=== PATIENT | female | born 1990 | race African-American/Black ===

== ENCOUNTER 2016-02-26 20:17 | Emergency (ER) | payer SELFPAY ==
[~2016-02-26] VITALS: Ht 157.5 cm; Wt 140.0 kg
[~2016-02-26 20:17] MED LIST: ALBU6.7H INH; AMLO5 PO; ASPI-110 PO; FURO1TAB60 PO; FURO40TA PO; NAPR500T PO; ZITH250T PO
[2016-02-26 20:18] VITALS: BP 141/68; PULSE 78; RESP 18; TEMP 98.3; O2SAT 94
[2016-02-26 22:57] VITALS: PULSE 82; RESP 18; O2SAT 97
[2016-02-27 01:56] VITALS: O2SAT 98
[2016-02-27] MEDS ORDERED: SODIUM CHLORIDE 0.9% FLUSH 5 ML FLUSH IVF PRN (02:00)
[2016-02-27 02:09] LABS: AUTOMATED NEUTROPHIL # 4.9 TH/MM3 (1.8-7.7); BASOPHIL % 0.3 % (0.0-2.0); EOSINOPHIL # 0.6 TH/MM3 (0-0.4); EOSINOPHIL % 6.4 % (0.0-4.0); HEMATOCRIT 32.6 % (35.0-46.0); LYMPH % 30.9 % (9.0-44.0); LYMPHOCYTE # 2.8 TH/MM3 (1.0-4.8); MEAN CELL VOLUME 67.4 FL (80.0-100.0); MEAN CORPUSCULAR HEMOGLOBIN 20.4 PG (27.0-34.0); MEAN CORPUSCULAR HGB CONC 30.3 % (32.0-36.0); MONO % 9.2 % (0.0-8.0); NEUT % 53.2 % (16.0-70.0); PLATELET COUNT 330 TH/MM3 (150-450); RED BLOOD COUNT 4.84 MIL/MM3 (4.00-5.30); RED CELL DISTRIBUTION WIDTH 19.6 % (11.6-17.2); WHITE BLOOD COUNT 9.2 TH/MM3 (4.0-11.0)
[2016-02-27 02:12] LABS: HEMO FLAGS AUTO DIFF
[2016-02-27 02:15] LABS: BACTERIA, URINE RARE /hpf; BLOOD, URINE NEG (NEG); COMMENT (UR) CULT NOT INDICATED; CULTURE IF INDICATED CULT NOT INDICATED; GLUCOSE,URINE NEG (NEG); KETONE, URINE NEG (NEG); MUCUS URINE FEW /lpf (OCC); NITRITE,URINE NEG (NEG); SQUAMOUS EPITHELIAL CELL URINE 8 /hpf (0-5); URINE COLOR YELLOW (YELLW/STRAW)
--- NOTE | 2016-02-27 02:20 | RADRPT ---
EXAM DATE/TIME: 02/27/2016 02:14 [facility] COMPARISON: CHEST SINGLE AP, January 24, 2016, 10:16. INDICATIONS : Shortness of breath. MEDICAL HISTORY : None. SURGICAL HISTORY : None. ENCOUNTER: Initial ACUITY: 1 day PAIN SCORE: 0/10 LOCATION: Bilateral chest FINDINGS: Examination is limited due to the breathing motion artifact in conjunction with the patient's body ndiaye bitus and portable nature of the study. A single view of the chest demonstrates the lungs to be symmetrically aerated without evidence of mas s, infiltrate or effusion. The cardiomediastinal contours are unremarkable. Osseous structures are intact. CONCLUSION: No acute disease. Somewhat limited study. Rudy Jefferson Jr., MD on February 27, 2016 at 2:18 Board Certified Radiologist. This report was verified electronically.
[2016-02-27 02:26] LABS: ANION GAP 8 MEQ/L (5-15); BICARBONATE 29.7 MEQ/L (21.0-32.0); BLOOD UREA NITROGEN 12 MG/DL (7-18); CHLORIDE 105 MEQ/L (98-107); GLOMERULAR FILTRATION RATE 112 ML/MIN (>89); MAGNESIUM 1.9 MG/DL (1.5-2.5); POTASSIUM 4.2 MEQ/L (3.5-5.1); SODIUM (NA) 143 MEQ/L (136-145)
[2016-02-27 02:29] LABS: CREATINE KINASE 136 U/L (26-192)
[2016-02-27 02:37] LABS: PLATELET ESTIMATE SMEAR NORMAL (NORMAL); PLATELET MORPHOLOGY NORMAL (NORMAL); SCAN/DIFF AUTO DIFF CONFIRMED
[2016-02-27 02:41] LABS: CKMB 1.6 NG/ML (0.5-3.6)
[2016-02-27] MEDS ORDERED: methylPREDNISolone SOD SUCC 125 MG/2 ML VIAL IVP ONE (03:00)
[2016-02-27] MEDS ORDERED: PRED20 PO (03:12)
[2016-02-27] MEDS ORDERED: VENTAER INH (03:12)
[2016-02-27] MEDS: RESP: ALBUTEROL 2.5 MG/IPRATROPIUM 0.5 MG NEB (SCH) INH ×2 (03:13→03:27)
--- NOTE | 2016-02-27 03:13 | PD ---
HPI Chief Complaint: Respiratory Distress Time Seen by Provider: 01:22 Travel History International Travel<30 days: No Contact w/Intl Traveler<30days: No Traveled to known affect area: No History of Present Illness HPI 25-year-old female came to the emergency room with history of shortness of breath for couple hours before coming into the emergency room. Patient has history of cardiomegaly and congestive heart failure. However she says that usually when it's a congestive heart failure she has associated chest pain but this time there was no chest pain. Oxygen saturation was 94% on room air in triage. Patient has history of sleep apnea. She is not a smoker. No history of fever or chills. PFSH Past Medical History Narrative Medical List of her past medical history as reviewed from the nursing note. Hx Anticoagulant Therapy: No Autoimmune Disease: No Bipolar Disorder: Yes Anxiety: No Depression: Yes Cancer: No Cardiovascular Problems: Yes (CHF) Chemotherapy: No Congestive Heart Failure: Yes Diabetes: No Diminished Hearing: No Endocrine: No Gastrointestinal Disorders: No Genitourinary: No Immune Disorder: No Implanted Vascular Access Dvce: No Insomnia: Yes Musculoskeletal: Yes Neurologic: Yes (numbness/tingling in hands & feet) Psychiatric: No Reproductive: No Respiratory: No Immunizations Current: Yes Radiation Therapy: No Tetanus Vaccination: Unknown Influenza Vaccination: No ?: Unknown LMP: 02/02/16 Menopausal: No : 1 Para: 1 Miscarriage: 0 : 0 Past Surgical History AICD: No Arteriovenous Shunt: No Section: Yes (february 2014) Hysterectomy: No Insulin Pump: No Joint Replacement: No Pacemaker: No Social History Alcohol Use: No Tobacco Use: No Substance Use: No Allergies-Medications (Allergen,Severity, Reaction): Coded Allergies: No Known Allergies (Verified , 02/27/16) Comments No known drug allergies. Reported Meds & Prescriptions Reported Meds & Active Scripts Active Ventolin Hfa 18 GM Inh (Albuterol Sulfate) 90 Mcg/Act Aer 2 Puff INH Q6H PRN Prednisone 20 Mg Tab 20 Mg PO BID 5 Days Norvasc (Amlodipine Besylate) 5 Mg Tab 5 Mg PO DAILY Aspirin 81 (Aspirin) 81 Mg Tabdr 81 Mg PO DAILY Reported Lasix (Furosemide) 40 Mg Tab 40 Mg PO DAILY Naproxen 500 Mg Tab 500 Mg PO BID Narrative Medication List of her home medications reviewed from the nursing note. Review of Systems Except as stated in HPI: all other systems reviewed are Neg Physical Exam Narrative GENERAL: Awake, alert, morbidly obese, moderate distress SKIN: Warm and dry. HEAD: Atraumatic. Normocephalic. EYES: Pupils equal and round. No scleral icterus. No injection or drainage. ENT: No nasal bleeding or discharge. Mucous membranes pink and moist. NECK: Trachea midline. No JVD. CARDIOVASCULAR: Regular rate and rhythm. No murmur appreciated. RESPIRATORY: Decreased air entry bilaterally, end expiratory wheeze GASTROINTESTINAL: Abdomen soft, non-tender, nondistended. Hepatic and splenic margins not palpable. MUSCULOSKELETAL: No obvious deformities. No clubbing. No cyanosis. No edema. NEUROLOGICAL: Awake and alert. No obvious cranial nerve deficits. Motor grossly within normal limits. Normal speech. PSYCHIATRIC: Appropriate mood and affect; insight and judgment normal. Data Data Last Documented VS Vital Signs Date Time Temp Pulse Resp B/P Pulse Ox O2 Delivery O2 Flow Rate FiO2 02/27/16 01:56 98 Room Air 02/26/16 22:57 82 18 02/26/16 20:18 98.3 141/68 Orders Complete Blood Count With Diff (02/27/16 01:48) Basic Metabolic Panel (Bmp) (02/27/16 01:48) B-Type Natriuretic Peptide (02/27/16 01:48) Magnesium (Mg) (02/27/16 01:48) Ckmb (Isoenzyme) Profile (02/27/16 01:48) Troponin I (02/27/16 01:48) Urinalysis - C+S If Indicated (02/27/16 01:48) Iv Access Insert/Monitor (02/27/16 01:48) Electrocardiogram (02/27/16 01:48) Ecg Monitoring (02/27/16 01:48) Oximetry (02/27/16 01:48) Oxygen Administration (02/27/16 01:48) Chest, Single Ap (02/27/16 01:48) Sodium Chloride 0.9% Flush (Ns Flush) (02/27/16 02:00) Ed Urine Pregnancytest Poc (02/27/16 01:48) CKMB (02/27/16 01:45) CKMB% (02/27/16 01:45) Methylprednisolone So Succ Inj (Solumedr (02/27/16 03:00) Albuterol-Ipratropium Neb (Duoneb Neb) (02/27/16 03:00) Albuterol Hfa Inh (Proair Hfa Inh) (02/27/16 03:15) Labs Laboratory Tests Test 02/27/16 01:45 White Blood Count 9.2 TH/MM3 Red Blood Count 4.84 MIL/MM3 Hemoglobin 9.9 GM/DL Hematocrit 32.6 % Mean Corpuscular Volume 67.4 FL Mean Corpuscular Hemoglobin 20.4 PG Mean Corpuscular Hemoglobin 30.3 % Concent Red Cell Distribution Width 19.6 % Platelet Count 330 TH/MM3 Mean Platelet Volume 7.4 FL Neutrophils (%) (Auto) 53.2 % Lymphocytes (%) (Auto) 30.9 % Monocytes (%) (Auto) 9.2 % Eosinophils (%) (Auto) 6.4 % Basophils (%) (Auto) 0.3 % Neutrophils # (Auto) 4.9 TH/MM3 Lymphocytes # (Auto) 2.8 TH/MM3 Monocytes # (Auto) 0.8 TH/MM3 Eosinophils # (Auto) 0.6 TH/MM3 Basophils # (Auto) 0.0 TH/MM3 CBC Comment AUTO DIFF Differential Comment AUTO DIFF CONFIRMED Platelet Estimate NORMAL Platelet Morphology Comment NORMAL Basophilic Stippling FAINT Urine Color YELLOW Urine Turbidity HAZY Urine pH 6.0 Urine Specific Bevier 1.029 Urine Protein 30 mg/dL Urine Glucose (UA) NEG mg/dL Urine Ketones NEG mg/dL Urine Occult Blood NEG Urine Nitrite NEG Urine Bilirubin NEG Urine Urobilinogen 2.0 MG/DL Urine Leukocyte Esterase NEG Urine WBC 4 /hpf Urine Squamous Epithelial 8 /hpf Cells Urine Bacteria RARE /hpf Urine Mucus FEW /lpf Microscopic Urinalysis Comment CULT NOT INDICATED Sodium Level 143 MEQ/L Potassium Level 4.2 MEQ/L Chloride Level 105 MEQ/L Carbon Dioxide Level 29.7 MEQ/L Anion Gap 8 MEQ/L Blood Urea Nitrogen 12 MG/DL Creatinine 0.75 MG/DL Estimat Glomerular Filtration 112 ML/MIN Rate Random Glucose 95 MG/DL Calcium Level 8.6 MG/DL Magnesium Level 1.9 MG/DL Total Creatine Kinase 136 U/L Creatine Kinase MB 1.6 NG/ML Troponin I LESS THAN 0.02 NG/ML B-Type Natriuretic Peptide 21 PG/ML MDM Medical Decision Making Medical Screen Exam Complete: Yes Emergency Medical Condition: Yes Medical Record Reviewed: Yes Interpretation(s) Twelve-lead EKG was reviewed by me. Normal sinus rhythm, normal axis, nonspecific ST-T wave changes. Heart rate of 70 bpm. Differential Diagnosis Acute asthma exacerbation, CHF exacerbation Narrative Course 3:10 AM blood test and chest x-ray is not suggestive of congestive heart failure at this time. Ordered nebulizer and IV Solu-Medrol for her. Patient has requested for an inhaler since she ran out of her inhaler. She will be discharged home on that and prednisone. Procedures EKG Prior to Arrival: Yes Diagnosis Primary Impression: Asthma exacerbation Referrals: Primary Care Physician 2 days Departure Forms: Tests/Procedures, Work Release Enter return to work date: Feb 28, 2016 Additional Instructions: Use your inhaler every 4-6 hours 2 puffs. With your primary care in couple days. Take the indication as per the prescription direction. Return to the ER if the condition worsens or any other new concerns. Med/Other Pt SpecificInfo: Prescription(s) given Scripts Albuterol 18 GM Inh (Ventolin Hfa 18 GM Inh)90 Mcg/Act Aer2 Puff INH Q6H PRN ( SHORTNESS OF BREATH) #1 INHALER Ref 0 Prov:Cleo Oroukre MD 02/27/16 Prednisone 20 Mg Tab20 Mg PO BID 5 Days Ref 0 Prov:Cleo Orourke MD 02/27/16 Disposition: 01 DISCHARGE HOME Condition: Stable Cleo Orourke MD Feb 27, 2016 03:13
[2016-02-27] MEDS ORDERED: ALBUTEROL SULFATE 90 MCG/ACT HFA 8 GM INHALER INH ONE (03:15)
--- NOTE | 2016-02-27 09:48 | EKG ---
Date Performed: 02/27/2016 Time Performed: 00:59:57 PTAGE: 25 years EKG: Sinus rhythm NORMAL ECG NO PREVIOUS TRACING DOCTOR: Shekhar Marie Interpretating Date/Time 02/27/2016 09:45:48
== END 2016-02-27 03:35 | disposition home or self-care (01) ==
LOC: NEPE 20:17
DX: J45.901 Unspecified asthma with (acute) exacerbation (principal); I50.9 Heart failure, unspecified; I51.7 Cardiomegaly
CPT/HCPCS: 71010; 80048; 81001; 82550; 82552; 83735; 83880; 84484; 84703; 85025; 93005; 94640; 94664; 96374; 99285; J2930

== ENCOUNTER 2016-08-31 19:49 | Emergency (ER) | payer OTHER ==
[~2016-08-31] VITALS: Ht 157.5 cm; Wt 145.0 kg
[~2016-08-31 19:49] MED LIST changes: -ALBU6.7H INH; -FURO40TA PO; +PRED20 PO; +VENTAER INH; -ZITH250T PO
[2016-08-31 19:50] VITALS: BP 146/95; PULSE 87; RESP 18; TEMP 98.5; O2SAT 95
[2016-08-31] MEDS ORDERED: ONDANSETRON HCL 4 MG/2 ML VIAL IV PUSH ONE (23:00)
[2016-08-31] MEDS ORDERED: KETOROLAC TROMETHAMINE 30 MG/ML (IVP) VIAL IV PUSH ONE (23:00)
--- NOTE | 2016-08-31 23:13 | RADRPT ---
EXAM DATE/TIME: 08/31/2016 22:59 [facility] COMPARISON: CHEST SINGLE AP, February 27, 2016, 2:14. INDICATIONS : Cough and short of breath. MEDICAL HISTORY : None. SURGICAL HISTORY : None. ENCOUNTER: Initial ACUITY: 2 weeks PAIN SCORE: 0/10 LOCATION: Bilateral chest FINDINGS: A single view of the chest demonstrates the lungs to be symmetrically aerated without evidence of mas s, infiltrate or effusion. The cardiomediastinal contours are unremarkable. Osseous structures are intact. CONCLUSION: No evidence of acute cardiopulmonary disease. Michael Gillis MD on August 31, 2016 at 23:12 Board Certified Radiologist. This report was verified electronically.
--- NOTE | 2016-08-31 23:25 | PD ---
HPI Chief Complaint: Respiratory Symptoms Time Seen by Provider: 22:20 Travel History International Travel<30 days: No Contact w/Intl Traveler<30days: No Traveled to known affect area: No History of Present Illness HPI 26yo F presents to the ED with c/o generalized bodyaches, nasal congestion for 2 weeks. Also with some throat discomfort. States her baby also has congestion. Denies any fever, chest pain, sob, vomiting, abdominal pain, focal weakness or numbness. Pt has a dry cough as well as nonbloody diarrhea. PFSH Past Medical History Medical History: Denies Significant Hx Hx Anticoagulant Therapy: No Autoimmune Disease: No Bipolar Disorder: Yes Anxiety: No Depression: Yes Cancer: No Cardiovascular Problems: Yes (CHF) Chemotherapy: No Congestive Heart Failure: Yes Diabetes: No Diminished Hearing: No Endocrine: No Gastrointestinal Disorders: No Genitourinary: No Immune Disorder: No Implanted Vascular Access Dvce: No Insomnia: Yes Musculoskeletal: Yes Neurologic: Yes (numbness/tingling in hands & feet) Psychiatric: No Reproductive: No Respiratory: Yes (copd) Immunizations Current: Yes Radiation Therapy: No Tetanus Vaccination: < 5 Years Influenza Vaccination: No ?: Not LMP: 08/18/2016 Menopausal: No : 1 Para: 1 Miscarriage: 0 : 0 Past Surgical History Surgical History: No Previous Surgery AICD: No Arteriovenous Shunt: No Section: Yes Hysterectomy: No Insulin Pump: No Joint Replacement: No Pacemaker: No Social History Alcohol Use: No Tobacco Use: No Substance Use: No Allergies-Medications (Allergen,Severity, Reaction): Coded Allergies: No Known Allergies (Verified , 08/31/16) Reported Meds & Prescriptions Reported Meds & Active Scripts Active Sudafed 12 Hour (Pseudoephedrine HCl) 120 Mg Tablet.er 1 Tab PO Q12HR PRN 5 Days Tylenol (Acetaminophen) 325 Mg Tab 650 Mg PO Q6H PRN Reported Lasix (Furosemide) 40 Mg Tab 40 Mg PO DAILY Review of Systems Except as stated in HPI: all other systems reviewed are Neg Physical Exam Narrative GENERAL: 26yo F in mild distress. SKIN: Focused skin assessment warm/dry. HEAD: Atraumatic. Normocephalic. EYES: Pupils equal and round. No scleral icterus. No injection or drainage. ENT: No nasal bleeding or discharge. Mucous membranes pink and moist. Throat: Clear. TM wnl bilaterally. NECK: Trachea midline. No JVD. No nuchal rigidity. CARDIOVASCULAR: Regular rate and rhythm. No murmur appreciated. RESPIRATORY: No accessory muscle use. Clear to auscultation. Breath sounds equal bilaterally. GASTROINTESTINAL: Abdomen soft, non-tender, nondistended. No rebound tenderness or guarding. MUSCULOSKELETAL: No obvious deformities. No clubbing. No cyanosis. No edema. NEUROLOGICAL: Awake and alert. No obvious cranial nerve deficits. Motor grossly within normal limits. Normal speech. PSYCHIATRIC: Appropriate mood and affect; insight and judgment normal. Data Data Last Documented VS Vital Signs Date Time Temp Pulse Resp B/P Pulse Ox O2 Delivery O2 Flow Rate FiO2 08/31/16 22:10 73 20 100 08/31/16 19:50 98.5 146/95 Room Air Orders Chest, Single Ap (08/31/16 ) Complete Blood Count With Diff (08/31/16 22:47) Basic Metabolic Panel (Bmp) (08/31/16 22:47) Ketorolac Inj (Toradol Inj) (08/31/16 23:00) Bhcg Screen Qualitative (08/31/16 22:47) Ondansetron Inj (Zofran Inj) (08/31/16 23:00) Influenzae A/B Antigen (08/31/16 22:47) Group A Rapid Strep Screen (08/31/16 22:47) Strep Culture (Group A) (08/31/16 23:05) Labs Laboratory Tests Test 08/31/16 23:25 White Blood Count 5.8 TH/MM3 Red Blood Count 4.89 MIL/MM3 Hemoglobin 9.7 GM/DL Hematocrit 32.4 % Mean Corpuscular Volume 66.2 FL Mean Corpuscular Hemoglobin 19.9 PG Mean Corpuscular Hemoglobin 30.1 % Concent Red Cell Distribution Width 20.6 % Platelet Count 353 TH/MM3 Mean Platelet Volume 8.8 FL Neutrophils (%) (Auto) 41.1 % Lymphocytes (%) (Auto) 37.5 % Monocytes (%) (Auto) 11.6 % Eosinophils (%) (Auto) 9.2 % Basophils (%) (Auto) 0.6 % Neutrophils # (Auto) 2.4 TH/MM3 Lymphocytes # (Auto) 2.2 TH/MM3 Monocytes # (Auto) 0.7 TH/MM3 Eosinophils # (Auto) 0.5 TH/MM3 Basophils # (Auto) 0.0 TH/MM3 CBC Comment DIFF FINAL Differential Comment Sodium Level 141 MEQ/L Potassium Level 4.4 MEQ/L Chloride Level 103 MEQ/L Carbon Dioxide Level 33.3 MEQ/L Anion Gap 5 MEQ/L Blood Urea Nitrogen 7 MG/DL Creatinine 0.78 MG/DL Estimat Glomerular Filtration 106 ML/MIN Rate Random Glucose 95 MG/DL Calcium Level 8.3 MG/DL Beta HCG, Qualitative LESS THAN 1 MIU/ML MDM Medical Decision Making Medical Screen Exam Complete: Yes Emergency Medical Condition: Yes Interpretation(s) Laboratory Tests Test 08/31/16 23:25 White Blood Count 5.8 TH/MM3 (4.0-11.0) Red Blood Count 4.89 MIL/MM3 (4.00-5.30) Hemoglobin 9.7 GM/DL (11.6-15.3) Hematocrit 32.4 % (35.0-46.0) Mean Corpuscular Volume 66.2 FL (80.0-100.0) Mean Corpuscular Hemoglobin 19.9 PG (27.0-34.0) Mean Corpuscular Hemoglobin 30.1 % Concent (32.0-36.0) Red Cell Distribution Width 20.6 % (11.6-17.2) Platelet Count 353 TH/MM3 (150-450) Mean Platelet Volume 8.8 FL (7.0-11.0) Neutrophils (%) (Auto) 41.1 % (16.0-70.0) Lymphocytes (%) (Auto) 37.5 % (9.0-44.0) Monocytes (%) (Auto) 11.6 % (0.0-8.0) Eosinophils (%) (Auto) 9.2 % (0.0-4.0) Basophils (%) (Auto) 0.6 % (0.0-2.0) Neutrophils # (Auto) 2.4 TH/MM3 (1.8-7.7) Lymphocytes # (Auto) 2.2 TH/MM3 (1.0-4.8) Monocytes # (Auto) 0.7 TH/MM3 (0-0.9) Eosinophils # (Auto) 0.5 TH/MM3 (0-0.4) Basophils # (Auto) 0.0 TH/MM3 (0-0.2) CBC Comment DIFF FINAL Differential Comment Sodium Level 141 MEQ/L (136-145) Potassium Level 4.4 MEQ/L (3.5-5.1) Chloride Level 103 MEQ/L (98-107) Carbon Dioxide Level 33.3 MEQ/L (21.0-32.0) Anion Gap 5 MEQ/L (5-15) Blood Urea Nitrogen 7 MG/DL (7-18) Creatinine 0.78 MG/DL (0.50-1.00) Estimat Glomerular Filtration 106 ML/MIN Rate (>89) Random Glucose 95 MG/DL (74-106) Calcium Level 8.3 MG/DL (8.5-10.1) Beta HCG, Qualitative LESS THAN 1 MIU/ML (0-5) Differential Diagnosis URI vs. flu like symptoms vs. viral syndrome vs. dehydration Narrative Course 26yo F with flu like symptoms. Labs reviewed, no leukocytosis. H/H 9.7/32.4. This is low but at baseline. CO2 mildly elevated at 33.3. negative. UA showed negative leukocyte. Culture not indicated. CXR negative. Influenza and group A strep negative. Pt given toradol and zofran. Pt reevaluated at bedside and feels better. Return precautions given. Diagnosis Primary Impression: URI (upper respiratory infection) Qualified Code: J06.9 - Upper respiratory tract infection, unspecified type Patient Instructions: General Instructions Departure Forms: Tests/Procedures, Work Release Enter return to work date: Sep 03, 2016 Additional Instructions: Please follow up with your PMD in 3-7 days. Return to the ED if symptoms worsen. Med/Other Pt SpecificInfo: Prescription(s) given Scripts Pseudoephedrine HCl (Sudafed 12 Hour)120 Mg Tablet.er1 Tab PO Q12HR PRN (NASAL CONGESTION) 5 Days Prov:Marisa Fermin 09/01/16 Acetaminophen (Tylenol)325 Mg [id number] Mg PO Q6H PRN (PAIN SCALE 1 TO 4) #20 TAB Ref 0 Prov:Marisa Fermin 09/01/16 Disposition: 01 DISCHARGE HOME Condition: Stable Argelia Ferminluan ROSS Aug 31, 2016 23:25
[2016-08-31 23:55] LABS: AUTOMATED NEUTROPHIL # 2.4 TH/MM3 (1.8-7.7); BASOPHIL % 0.6 % (0.0-2.0); EOSINOPHIL # 0.5 TH/MM3 (0-0.4); EOSINOPHIL % 9.2 % (0.0-4.0); HEMATOCRIT 32.4 % (35.0-46.0); HEMO FLAGS DIFF FINAL; LYMPH % 37.5 % (9.0-44.0); LYMPHOCYTE # 2.2 TH/MM3 (1.0-4.8); MEAN CELL VOLUME 66.2 FL (80.0-100.0); MEAN CORPUSCULAR HEMOGLOBIN 19.9 PG (27.0-34.0); MEAN CORPUSCULAR HGB CONC 30.1 % (32.0-36.0); MONO % 11.6 % (0.0-8.0); NEUT % 41.1 % (16.0-70.0); PLATELET COUNT 353 TH/MM3 (150-450); RED BLOOD COUNT 4.89 MIL/MM3 (4.00-5.30); RED CELL DISTRIBUTION WIDTH 20.6 % (11.6-17.2); WHITE BLOOD COUNT 5.8 TH/MM3 (4.0-11.0)
[2016-09-01 00:06] LABS: BHCG SCREEN QUALITATIVE LESS THAN 1 MIU/ML (0-5)
[2016-09-01 00:07] LABS: BLOOD UREA NITROGEN 7 MG/DL (7-18)
[2016-09-01 00:08] LABS: ANION GAP 5 MEQ/L (5-15); BICARBONATE 33.3 MEQ/L (21.0-32.0); CHLORIDE 103 MEQ/L (98-107); GLOMERULAR FILTRATION RATE 106 ML/MIN (>89); POTASSIUM 4.4 MEQ/L (3.5-5.1); SODIUM (NA) 141 MEQ/L (136-145)
[2016-09-01] MEDS ORDERED: SUDA120T6 PO (01:01)
[2016-09-01] MEDS ORDERED: TYLE325T PO (01:01)
[2016-09-01 01:03] VITALS: RESP 20
== END 2016-09-01 01:23 | disposition home or self-care (01) ==
LOC: NEPD 19:49
DX: J06.9 Acute upper respiratory infection, unspecified (principal); R19.7 Diarrhea, unspecified; J44.9 Chronic obstructive pulmonary disease, unspecified; I50.9 Heart failure, unspecified; F31.9 Bipolar disorder, unspecified; Z79.899 Other long term (current) drug therapy
CPT/HCPCS: 71010; 80048; 84703; 85025; 87081; 87804; 87880; 96374; 96375; 99284; J1885; J2405

== ENCOUNTER 2016-11-22 21:32 | Observation (INO) | payer OTHER ==
[~2016-11-22] VITALS: Ht 157.5 cm; Wt 149.4 kg
[~2016-11-22 21:32] MED LIST changes: -AMLO5 PO; -ASPI-110 PO; -NAPR500T PO; -PRED20 PO; +SUDA120T6 PO; +TYLE325T PO; -VENTAER INH
[2016-11-22 21:56] VITALS: BP 191/101; PULSE 96; RESP 20; TEMP 99.1; O2SAT 92
[2016-11-22 21:58] VITALS: BP 162/105; PULSE 90; RESP 22; O2SAT 92
[2016-11-22] MEDS ORDERED: SODIUM CHLORIDE 0.9% FLUSH 10 ML FLUSH IVF PRN (22:00)
[2016-11-22] MEDS ORDERED: FUROSEMIDE 40 MG/4 ML VIAL IVP ONE (22:00)
--- NOTE | 2016-11-22 22:05 | PD ---
HPI Chief Complaint: Respiratory Symptoms Time Seen by Provider: 21:54 Travel History International Travel<30 days: No Contact w/Intl Traveler<30days: No Traveled to known affect area: No History of Present Illness HPI Patient is a 26-year-old female presenting to emergency for evaluation of shortness of breath. Patient states that she's felt short of breath for the last 2 days and had accompanying body aches. Today she felt as if she was going to pass out and couldn't breathe well. She states that she was diagnosed with asthma a few years ago and has been fine. She does not have an inhaler at home. She reports that she had a history of congestive heart failure as well and reports increased swelling in her feet. She denies chest pain, fever, chills, nausea, vomiting, abdominal pain. PFSH Past Medical History Hx Anticoagulant Therapy: No Asthma: Yes Autoimmune Disease: No Bipolar Disorder: Yes Anxiety: No Depression: Yes Cancer: No Chemotherapy: No Congestive Heart Failure: Yes Diabetes: No Diminished Hearing: No Endocrine: No Gastrointestinal Disorders: No Genitourinary: No Immune Disorder: No Implanted Vascular Access Dvce: No Insomnia: Yes Neurologic: Yes (numbness/tingling in hands & feet) Psychiatric: No Reproductive: No Immunizations Current: Yes Radiation Therapy: No ?: Unknown LMP: 10/21/16 Menopausal: No : 1 Para: 1 Miscarriage: 0 : 0 Past Surgical History AICD: No Arteriovenous Shunt: No Section: Yes Hysterectomy: No Insulin Pump: No Joint Replacement: No Pacemaker: No Social History Alcohol Use: No Tobacco Use: No Substance Use: No Allergies-Medications (Allergen,Severity, Reaction): Coded Allergies: No Known Allergies (Verified , 11/22/16) Reported Meds & Prescriptions Reported Meds & Active Scripts Active No Active Prescriptions or Reported Medications Review of Systems Except as stated in HPI: all other systems reviewed are Neg General / Constitutional: No: Fever, Chills HENT: No: Headaches Cardiovascular: Positive: Dyspnea on exertion, No: Chest Pain or Discomfort Respiratory: Positive: Shortness of Breath Gastrointestinal: No: Nausea, Vomiting, Abdominal Pain Musculoskeletal: Positive: Myalgias Physical Exam Narrative GENERAL: Obese, well-developed, alert female. Appears uncomfortable, in no acute distress. SKIN: Warm and dry. HEAD: Atraumatic. Normocephalic. EYES: Pupils equal and round. No scleral icterus. No injection or drainage. ENT: No nasal bleeding or discharge. Mucous membranes pink and moist. NECK: Trachea midline. No JVD. CARDIOVASCULAR: Regular rate and rhythm. RESPIRATORY: No accessory muscle use. Diminished throughout. GASTROINTESTINAL: Abdomen soft, non-tender, nondistended. Hepatic and splenic margins not palpable. MUSCULOSKELETAL: Extremities without clubbing, cyanosis. Trace pedal edema, no obvious deformities. NEUROLOGICAL: Awake and alert. No obvious cranial nerve deficits. Motor grossly within normal limits. Five out of 5 muscle strength in the arms and legs. Normal speech. PSYCHIATRIC: Appropriate mood and affect; insight and judgment normal. Data Data Last Documented VS Vital Signs Date Time Temp Pulse Resp B/P (MAP) Pulse Ox O2 Delivery O2 Flow Rate FiO2 11/23/16 01:52 90 24 168/78 (108) 94 Nasal Cannula 2.00 11/22/16 21:56 99.1 Orders Orders Complete Blood Count With Diff (11/22/16 22:00) Comprehensive Metabolic Panel (11/22/16 22:00) B-Type Natriuretic Peptide (11/22/16 22:00) Magnesium (Mg) (11/22/16 22:00) Arterial Blood Gas (Abg) (11/22/16 22:00) Influenzae A/B Antigen (11/22/16 22:00) Iv Access Insert/Monitor (11/22/16 22:00) Electrocardiogram (11/22/16 22:00) Ecg Monitoring (11/22/16 22:00) Oximetry (11/22/16 22:00) Oxygen Administration (11/22/16 22:00) Chest, Single Ap (11/22/16 22:00) Sodium Chloride 0.9% Flush (Ns Flush) (11/22/16 22:00) Furosemide Inj (Lasix Inj) (11/22/16 22:00) Albuterol-Ipratropium Neb (Duoneb Neb) (11/22/16 22:00) Azithromycin (Zithromax) (11/23/16 00:45) Amoxicil-Clavulanate (Augmentin) (11/23/16 00:45) Methylprednisolone So Succ Inj (Solumedr (11/23/16 00:45) Labs Laboratory Tests Test 11/22/16 22:24 11/22/16 22:30 11/23/16 00:55 Blood Gas Puncture Site RT RADIAL Blood Gas Patient Temperature 98.6 Blood Gas HCO3 27 mmol/L Blood Gas Base Excess 1.9 mmol/L Blood Gas Oxygen Saturation 92 % Arterial Blood pH 7.38 Arterial Blood Partial Pressure CO2 46 mmHg Arterial Blood Partial Pressure O2 74 mmHG Arterial Blood Oxygen Content 13.3 Vol % Arterial Blood Carboxyhemoglobin 1.7 % Arterial Blood Methemoglobin 0.4 % Blood Gas Hemoglobin 10.2 G/DL Oxygen Delivery Device NASAL CANNULA Blood Gas Liter Flow 2 L/M White Blood Count 10.7 TH/MM3 Red Blood Count 5.37 MIL/MM3 Hemoglobin 11.5 GM/DL Hematocrit 36.4 % Mean Corpuscular Volume 67.8 FL Mean Corpuscular Hemoglobin 21.4 PG Mean Corpuscular Hemoglobin Concent 31.6 % Red Cell Distribution Width 20.0 % Platelet Count 489 TH/MM3 Mean Platelet Volume 7.7 FL Neutrophils (%) (Auto) 64.7 % Lymphocytes (%) (Auto) 28.0 % Monocytes (%) (Auto) 4.7 % Eosinophils (%) (Auto) 1.9 % Basophils (%) (Auto) 0.7 % Neutrophils # (Auto) 6.9 TH/MM3 Lymphocytes # (Auto) 3.0 TH/MM3 Monocytes # (Auto) 0.5 TH/MM3 Eosinophils # (Auto) 0.2 TH/MM3 Basophils # (Auto) 0.1 TH/MM3 CBC Comment DIFF FINAL Differential Comment B-Type Natriuretic Peptide 257 PG/ML Blood Urea Nitrogen 9 MG/DL Creatinine 0.90 MG/DL Random Glucose 97 MG/DL Total Protein 8.3 GM/DL Albumin 4.6 GM/DL Calcium Level 8.3 MG/DL Magnesium Level 1.7 MG/DL Alkaline Phosphatase 66 U/L Aspartate Amino Transf (AST/SGOT) 24 U/L Alanine Aminotransferase (ALT/SGPT) 32 U/L Total Bilirubin 0.5 MG/DL Sodium Level 139 MEQ/L Potassium Level 4.0 MEQ/L Chloride Level 102 MEQ/L Carbon Dioxide Level 28.9 MEQ/L Anion Gap 8 MEQ/L Estimat Glomerular Filtration Rate 90 ML/MIN MDM Medical Decision Making Medical Screen Exam Complete: Yes Emergency Medical Condition: Yes Interpretation(s) Laboratory Tests Test 11/22/16 22:24 11/22/16 22:30 11/23/16 00:55 Blood Gas Puncture Site RT RADIAL Blood Gas Patient Temperature 98.6 Blood Gas HCO3 27 mmol/L Blood Gas Base Excess 1.9 mmol/L Blood Gas Oxygen Saturation 92 % Arterial Blood pH 7.38 Arterial Blood Partial Pressure CO2 46 mmHg Arterial Blood Partial Pressure O2 74 mmHG Arterial Blood Oxygen Content 13.3 Vol % Arterial Blood Carboxyhemoglobin 1.7 % Arterial Blood Methemoglobin 0.4 % Blood Gas Hemoglobin 10.2 G/DL Oxygen Delivery Device NASAL CANNULA Blood Gas Liter Flow 2 L/M White Blood Count 10.7 TH/MM3 Red Blood Count 5.37 MIL/MM3 Hemoglobin 11.5 GM/DL Hematocrit 36.4 % Mean Corpuscular Volume 67.8 FL Mean Corpuscular Hemoglobin 21.4 PG Mean Corpuscular Hemoglobin Concent 31.6 % Red Cell Distribution Width 20.0 % Platelet Count 489 TH/MM3 Mean Platelet Volume 7.7 FL Neutrophils (%) (Auto) 64.7 % Lymphocytes (%) (Auto) 28.0 % Monocytes (%) (Auto) 4.7 % Eosinophils (%) (Auto) 1.9 % Basophils (%) (Auto) 0.7 % Neutrophils # (Auto) 6.9 TH/MM3 Lymphocytes # (Auto) 3.0 TH/MM3 Monocytes # (Auto) 0.5 TH/MM3 Eosinophils # (Auto) 0.2 TH/MM3 Basophils # (Auto) 0.1 TH/MM3 CBC Comment DIFF FINAL Differential Comment B-Type Natriuretic Peptide 257 PG/ML Blood Urea Nitrogen 9 MG/DL Creatinine 0.90 MG/DL Random Glucose 97 MG/DL Total Protein 8.3 GM/DL Albumin 4.6 GM/DL Calcium Level 8.3 MG/DL Magnesium Level 1.7 MG/DL Alkaline Phosphatase 66 U/L Aspartate Amino Transf (AST/SGOT) 24 U/L Alanine Aminotransferase (ALT/SGPT) 32 U/L Total Bilirubin 0.5 MG/DL Sodium Level 139 MEQ/L Potassium Level 4.0 MEQ/L Chloride Level 102 MEQ/L Carbon Dioxide Level 28.9 MEQ/L Anion Gap 8 MEQ/L Estimat Glomerular Filtration Rate 90 ML/MIN Vital Signs Date Time Temp Pulse Resp B/P (MAP) Pulse Ox O2 Delivery O2 Flow Rate FiO2 11/22/16 21:58 90 22 162/105 (124) 92 Nasal Cannula 10/1/17 21:56 99.1 96 20 191/101 (131) 92 Room Air 11/22/16 21:55 89 Nasal Cannula 2.00 Differential Diagnosis CHF versus asthma exacerbation versus pneumonia versus less likely PE versus other Narrative Course Patient presented with 2 days of worsening shortness of breath and body aches. On arrival her oxygen saturation was in the upper 80s. Patient does not normally require oxygen. She reported a history of asthma as well as congestive heart failure. Labs and imaging ordered and pending. Nebulizer treatment as well as Lasix IV was ordered. CBC with no acute findings BNP 257 Chest x-ray read by the radiologist shows lobar consolidation of the left lower lung. Patient was given Augmentin and azithromycin as well as Solu-Medrol. Patient ambulated, her O2 sats were reassessed at 88% on room air. She became tachycardic with a rate in the 120s as well. For this reason patient will be admitted under observation to optimize her respiratory status. Discussed with Dr. Camacho accepted admission. Admit orders placed. Sepsis Criteria SIRS Criteria (2 or more): Heart rate over 90, RR > 20 or PaCO2 < 32 Sepsis Criteria (SIRS+source): Infect source susp/known Diagnosis Primary Impression: Pneumonia Qualified Codes: J18.1 - Lobar pneumonia, unspecified organism Admitting Information Admitting Physician Requests: Observation Scripts No Active Prescriptions or Reported Meds Condition: Maria Esther Lindsay MEDICAL INSURANCE COLLECTOR Nov 22, 2016 22:05
[2016-11-22 22:10] VITALS: O2SAT 98
[2016-11-22] MEDS: RESP: ALBUTEROL 2.5 MG/IPRATROPIUM 0.5 MG NEB (SCH) INH ×2 (22:17→22:18)
[2016-11-22 22:37] LABS: AUTOMATED NEUTROPHIL # 6.9 TH/MM3 (1.8-7.7); BASOPHIL # 0.1 TH/MM3 (0-0.2); BASOPHIL % 0.7 % (0.0-2.0); EOSINOPHIL # 0.2 TH/MM3 (0-0.4); EOSINOPHIL % 1.9 % (0.0-4.0); HEMATOCRIT 36.4 % (35.0-46.0); HEMO FLAGS DIFF FINAL; MEAN CELL VOLUME 67.8 FL (80.0-100.0); MEAN CORPUSCULAR HEMOGLOBIN 21.4 PG (27.0-34.0); MEAN CORPUSCULAR HGB CONC 31.6 % (32.0-36.0); MONO % 4.7 % (0.0-8.0); NEUT % 64.7 % (16.0-70.0); PLATELET COUNT 489 TH/MM3 (150-450); RED BLOOD COUNT 5.37 MIL/MM3 (4.00-5.30); WHITE BLOOD COUNT 10.7 TH/MM3 (4.0-11.0)
[2016-11-22 22:37] LABS: BLOOD GAS BASE EXCESS 1.9 mmol/L (-2-2); BLOOD GAS CARBOXYHEMOGLOBIN 1.7 % (0-4); BLOOD GAS HCO3 27 mmol/L (22-26); BLOOD GAS METHEMOGLOBIN 0.4 % (0-2); BLOOD GAS O2 HGB SATURATION 92 % (90-100); BLOOD GAS OXYGEN CONTENT 13.3 Vol % (12.0-20.0); BLOOD GAS PCO2 46 mmHg (38-42); BLOOD GAS PO2 74 mmHG (61-120); BLOOD GAS TOTAL HGB 10.2 G/DL (12.0-16.0); TEMP CORR TO 98.6
[2016-11-22 22:38] VITALS: RESP 24; O2SAT 99
[2016-11-22 22:38] LABS: CRITICAL VALUE NO; DRAW SITE RT RADIAL; LITER FLOW 2 L/M; NUMBER OF ARTERIAL PUNCTURES 1; OXYGEN DEVICE NASAL CANNULA; STAT YES; ULNAR PULSE PRESENT
--- NOTE | 2016-11-22 22:39 | RADRPT ---
EXAM DATE/TIME: 11/22/2016 22:10 [facility] COMPARISON: CHEST SINGLE AP, August 31, 2016, 22:59. INDICATIONS : Short of breath. MEDICAL HISTORY : None. SURGICAL HISTORY : None. ENCOUNTER: Initial ACUITY: 1 day PAIN SCORE: 7/10 LOCATION: Bilateral chest FINDINGS: Frontal portable view of the chest demonstrates the right lung to be clear. Multiple air bronchogram s are seen in the left mid and lower lung without loss of delineation left hemidiaphragm. The heart is upper limits normal size for AP technique. CONCLUSION: Lobar consolidation left lower lung. Rudy Bronson MD on November 22, 2016 at 22:37 Board Certified Radiologist. This report was verified electronically.
[2016-11-23] VITALS (21 sets, daily range): BP systolic 143–195; BP diastolic 78–92; PULSE 74–100; RESP 16–24; TEMP 97.9–98.7; O2SAT 92–99
[2016-11-23] MEDS ORDERED: AMOXICILLIN/CLAVULANATE K 875 MG TAB PO ONE (00:45)
[2016-11-23] MEDS ORDERED: methylPREDNISolone SOD SUCC 125 MG/2 ML VIAL IV PUSH ONE (00:45)
[2016-11-23] MEDS ORDERED: AZITHROMYCIN 250 MG TAB PO ONE (00:45)
[2016-11-23 01:30] LABS: ALKALINE PHOSPHATASE 66 U/L (45-117); TOTAL BILIRUBIN ADULT 0.5 MG/DL (0.2-1.0)
[2016-11-23 01:35] LABS: ALT (GPT) 32 U/L (10-53); ANION GAP 8 MEQ/L (5-15); AST (GOT) 24 U/L (15-37); BICARBONATE 28.9 MEQ/L (21.0-32.0); BLOOD UREA NITROGEN 9 MG/DL (7-18); CHLORIDE 102 MEQ/L (98-107); GLOMERULAR FILTRATION RATE 90 ML/MIN (>89); MAGNESIUM 1.7 MG/DL (1.5-2.5); SODIUM (NA) 139 MEQ/L (136-145)
[2016-11-23] MEDS ORDERED: ONDANSETRON HCL 4 MG/2 ML VIAL IV PUSH ONE (02:15)
[2016-11-23] MEDS: cefTRIAXone 1,000 MG/NS 100 ML IV SCH ×2 (06:47)
[2016-11-23] MEDS ORDERED: RESP: ALBUTEROL 2.5 MG/IPRATROPIUM 0.5 MG NEB (PRN) NEB (07:45)
[2016-11-23 08:00] LABS: BLOOD GAS CARBOXYHEMOGLOBIN 1.4 % (0-4); BLOOD GAS HCO3 30 mmol/L (22-26); BLOOD GAS METHEMOGLOBIN 0.6 % (0-2); BLOOD GAS O2 HGB SATURATION 86 % (90-100); BLOOD GAS OXYGEN CONTENT 13.8 Vol % (12.0-20.0); BLOOD GAS PCO2 75 mmHg (38-42); BLOOD GAS PO2 66 mmHG (61-120); BLOOD GAS TOTAL HGB 11.3 G/DL (12.0-16.0); CRITICAL VALUE YES; DRAW SITE RT RADIAL; LITER FLOW 4 L/M; NUMBER OF ARTERIAL PUNCTURES 1; OXYGEN DEVICE NASAL CANNULA; STAT YES; TEMP CORR TO 98.6; ULNAR PULSE PRESENT
[2016-11-23] MEDS: RESP: ALBUTEROL 2.5 MG/IPRATROPIUM 0.5 MG NEB (SCH) NEB ×4 (08:28→21:59)
[2016-11-23] MEDS: AZITHROMYCIN 500 MG/NS 250 ML IV SCH ×2 (08:30)
[2016-11-23] MEDS ORDERED: methylPREDNISolone SOD SUCC 125 MG/2 ML VIAL IV PUSH SCH ×2 (09:00→14:00)
--- NOTE | 2016-11-23 09:10 | HHI.HP ---
HPI Service CP Hospitalists Primary Care Physician No Primary Care Physician Admission Diagnosis PNEUMONIA, HYPOXIA Chief Complaint: shortness of breath Travel History International Travel<30 Days: No Contact w/Intl Traveler <30 Da: No Traveled to Known Affected Are: No History of Present Illness This is a 26-year-old obese female with past medical history which includes asthma, hypertension and CHF after childbirth 2 years ago. Patient is no longer on Lasix, antihypertensive medication or rescue inhaler. Patient reports she has intermittent shortness of breath but does not have rescue inhaler at home. Patient reports or shortness of breath got worse last night. Patient felt as though she was going to pass out and she couldn't breathe well before she proceeded to the emergency department for further evaluation and treatment. Patient reports this is consistent with her prior asthma attacks, but is unable to tell us how long the symptoms typically last. Patient endorses mild bilateral lower extremity edema which is consistent with her normal as she has a job that requires long periods of standing. Edema has resolved at this time she has been lying in bed with her feet up through the night. When the patient was initially assessed she was obtunded and difficult to arouse. Stat ABG obtained after arterial stick patient awoke is able to answer questions appropriately does continue to appear drowsy. Information gathered from patient as well as prior computerized charting. This patient is currently a poor historian. Patient offers no other complaints at this time. Patient denies chest pain, nausea, vomiting, diarrhea, constipation, cough, fevers or chills. Review of Systems ROS Limitations: Clinical Condition, Poor Historian Constitutional: COMPLAINS OF: Fatigue, DENIES: Fever, Chills Respiratory: COMPLAINS OF: Shortness of breath, DENIES: Cough, Sputum production Cardiovascular: COMPLAINS OF: Dyspnea on Exertion, Lower Extremity Edema, DENIES: Chest pain, Palpitations Gastrointestinal: DENIES: Abdominal pain, Constipation, Diarrhea Neurologic: DENIES: Abnormal gait, Headache, Localized weakness, Speech Problems Psychiatric: DENIES: Anxiety, Confusion, Depression Past Family Social History Past Medical History asthma, hypertension and CHF after childbirth 2 years ago Past Surgical History section Reported Medications Patient does not take any medications at home Allergies: Coded Allergies: No Known Allergies (Verified , 11/22/16) Active Ordered Medications Current Medications Medications (Trade) Dose Ordered Sig/Vanda Route Start Time Stop Time Status Last Admin (NS Flush) 2 ml UNSCH PRN IVF 11/22/16 22:00 Ceftriaxone Sodium 1000 mg/ Sodium Chloride 100 ml @ 200 mls/hr Q24H IV 11/23/16 06:00 11/23/16 06:47 Azithromycin 500 mg/Sodium Chloride 250 ml @ 250 mls/hr Q24H IV 11/23/16 08:00 11/23/16 08:30 (Duoneb Neb) 1 ampule Q2HR NEB PRN NEB 11/23/16 07:45 (SoluMEDROL INJ) 60 mg Q12HR IV PUSH 11/23/16 09:00 11/23/16 08:31 (Duoneb Neb) 1 ampule Q6HR NEB NEB 11/23/16 08:00 11/23/16 08:28 Family History DM and HTN Social History has a two year old son Denies tobacco use, ETOH use or illicit drug use Physical Exam Vital Signs Vital Signs Date Time Temp Pulse Resp B/P (MAP) Pulse Ox O2 Delivery O2 Flow Rate FiO2 11/23/16 08:30 99 30 11/23/16 07:23 98.5 100 18 195/80 (118) 93 11/23/16 04:49 98.3 93 16 145/92 (109) 92 11/23/16 04:27 11/23/16 01:52 90 24 168/78 (108) 94 Nasal Cannula 2.00 11/22/16 22:38 24 99 Nasal Cannula 11/22/16 22:10 98 Nasal Cannula 2.00 11/22/16 21:58 90 22 162/105 (124) 92 Nasal Cannula 11/22/16 21:56 99.1 96 20 191/101 (131) 92 Room Air 11/22/16 21:55 89 Nasal Cannula 2.00 Physical Exam GENERAL: This is an obese 26 year old female patient, difficult to arouse SKIN: No rashes, ecchymoses or lesions. Cool and dry. HEAD: Atraumatic. Normocephalic. No temporal or scalp tenderness. EYES: Extraocular motions intact. No scleral icterus. No injection or drainage. ENT: Nose without bleeding, purulent drainage or septal hematoma. Throat without erythema, tonsillar hypertrophy or exudate. Uvula midline. Airway patent. NECK: Trachea midline. No JVD or lymphadenopathy. Supple, nontender, no meningeal signs. CARDIOVASCULAR: Regular rate and rhythm RESPIRATORY: Difficult to auscultate due to body habitus diminished throughout GASTROINTESTINAL: Abdomen soft, non-tender, nondistended. No hepato-splenomegaly , or palpable masses. No guarding. MUSCULOSKELETAL: Extremities without clubbing, cyanosis, or edema. No joint tenderness, effusion, or edema noted. No calf tenderness. Negative Homans sign bilaterally. NEUROLOGICAL: Obtunded. No focal deficits appreciated. Motor and sensory grossly within normal limits. Laboratory Laboratory Tests Test 11/22/16 22:24 11/22/16 22:30 11/23/16 00:55 11/23/16 07:50 Blood Gas Puncture Site RT RADIAL RT RADIAL Blood Gas Patient Temperature 98.6 98.6 Blood Gas HCO3 27 30 Blood Gas Base Excess 1.9 3.0 Blood Gas Oxygen Saturation 92 86 Arterial Blood pH 7.38 7.23 Arterial Blood Partial Pressure CO2 46 75 Arterial Blood Partial Pressure O2 74 66 Arterial Blood Oxygen Content 13.3 13.8 Arterial Blood Carboxyhemoglobin 1.7 1.4 Arterial Blood Methemoglobin 0.4 0.6 Blood Gas Hemoglobin 10.2 11.3 Oxygen Delivery Device NASAL CANNULA NASAL CANNULA Blood Gas Liter Flow 2 4 White Blood Count 10.7 Red Blood Count 5.37 Hemoglobin 11.5 Hematocrit 36.4 Mean Corpuscular Volume 67.8 Mean Corpuscular Hemoglobin 21.4 Mean Corpuscular Hemoglobin Concent 31.6 Red Cell Distribution Width 20.0 Platelet Count 489 Mean Platelet Volume 7.7 Neutrophils (%) (Auto) 64.7 Lymphocytes (%) (Auto) 28.0 Monocytes (%) (Auto) 4.7 Eosinophils (%) (Auto) 1.9 Basophils (%) (Auto) 0.7 Neutrophils # (Auto) 6.9 Lymphocytes # (Auto) 3.0 Monocytes # (Auto) 0.5 Eosinophils # (Auto) 0.2 Basophils # (Auto) 0.1 CBC Comment DIFF FINAL Differential Comment B-Type Natriuretic Peptide 257 Blood Urea Nitrogen 9 Creatinine 0.90 Random Glucose 97 Total Protein 8.3 Albumin 4.6 Calcium Level 8.3 Magnesium Level 1.7 Alkaline Phosphatase 66 Aspartate Amino Transf (AST/SGOT) 24 Alanine Aminotransferase (ALT/SGPT) 32 Total Bilirubin 0.5 Sodium Level 139 Potassium Level 4.0 Chloride Level 102 Carbon Dioxide Level 28.9 Anion Gap 8 Estimat Glomerular Filtration Rate 90 Date/Time Source Procedure Growth Status 11/22/16 22:50 Nasal Washing Influenza Types A,B Antigen (RENNY) - Final NEGATIVE FOR FLU A AND B ANTIGEN.... Complete Result Diagram: 11/22/16222911/23/16 0055 Imaging Last Impressions Chest X-Ray 11/22/162199 Signed Impressions: Service Date/Time: Tuesday, November 22, 2016 22:10 - CONCLUSION: Lobar consolidation left lower lung. MD Jed Nolan VTE Risk Assessment Jed VTE Risk Assessment: No/Low Risk (score <= 1) Caprini Risk Assessment Model Point Value = 1 Point Value = 2 Point Value = 3 Point Value = 5 Age 41-60 Minor surgery BMI > 25 kg/m2 Swollen legs Varicose veins or History of unexplained or recurrent spontaneous Oral contraceptives or hormone replacement Sepsis (< 1 month) Serious lung disease, including pneumonia (< 1 month) Abnormal pulmonary function Acute myocardial infarction Congestive heart failure (< 1 month) History of inflammatory bowel disease Medical patient at bed rest Age 61-74 Arthroscopic surgery Major open surgery (> 45 min) Laparoscopic surgery (> 45 min) Malignancy Confined to bed (> 72 hours) Immobilizing plaster cast Central venous access Age >= 75 History of VTE Family history of VTE Factor V Leiden Prothrombin [id number] Lupus anticoagulant Anticardiolipin antibodies Elevated serum homocysteine Heparin-induced thrombocytopenia Other congenital or acquired thrombophilia Stroke (< 1 month) Elective arthroplasty Hip, pelvis, or leg fracture Acute spinal cord injury (< 1 month) Prophylaxis Regimen Total Risk Factor Score Risk Level Prophylaxis Regimen 0-1 Low Early ambulation 2 Moderate Order ONE of the following: *Sequential Compression Device (SCD) *Heparin 5000 units SQ BID 3-4 Higher Order ONE of the following medications: *Heparin 5000 units SQ TID *Enoxaparin/Lovenox 40 mg SQ daily (WT < 150 kg, CrCl > 30 mL/min) *Enoxaparin/Lovenox 30 mg SQ daily (WT < 150 kg, CrCl > 10-29 mL/min) *Enoxaparin/Lovenox 30 mg SQ BID (WT < 150 kg, CrCl > 30 mL/min) AND/OR *Sequential Compression Device (SCD) 5 or more Highest Order ONE of the following medications: *Heparin 5000 units SQ TID (Preferred with Epidurals) *Enoxaparin/Lovenox 40 mg SQ daily (WT < 150 kg, CrCl > 30 mL/min) *Enoxaparin/Lovenox 30 mg SQ daily (WT < 150 kg, CrCl > 10-29 mL/min) *Enoxaparin/Lovenox 30 mg SQ BID (WT < 150 kg, CrCl > 30 mL/min) AND *Sequential Compression Device (SCD) Assessment and Plan Problem List: (1) Respiratory acidosis ICD Codes: E87.2 - Acidosis Plan: Patient with respiratory acidosis and hypercapnia Asthma exacerbation Stat ABG obtained reveals pH of 7.23, PCO2 of 75, PO2 of 66, base excess of 3.0 , bicarbonate 30 Place patient on BiPAP Recheck ABG and one hour Would like to transfer patient to [facility], patient's mother is currently in ICU with trach patient refusing ICU placement agreeable to [facility] Solu-Medrol 125 mg given in ER yesterday will continue Solu-Medrol at 60 mg every 6 hours Duo nebs every 4 hours scheduled with every 2 to hours as needed Early pneumonia Chest x-ray reviewed and reveals lobar consolidation left lower right lung Continue azithromycin and Rocephin Supportive care Hypertension patient not on home medication and We'll monitor blood pressure trend DVT prophylaxis with Lovenox (2) Hypercapnemia ICD Codes: R06.89 - Other abnormalities of breathing (3) Asthma exacerbation ICD Codes: J45.901 - Unspecified asthma with (acute) exacerbation Status: Acute (4) Morbid obesity with body mass index (BMI) of 60.0 to 69.9 in adult ICD Codes: E66.01 - Morbid (severe) obesity due to excess calories; Z68.44 - Body mass index (BMI) 60.0-69.9, adult Assessment and Plan Patient examined. Assessment and plan formulated with Carola Paris PA-C. I agree with the above. asthma exacerbation with resp acidosis. bipap. solumedrol. nebs. abx at first pt was not interested in bipap. her mother is in ICU now and she has a high level of anxiety...and will not go there. move her to [facility]. bp meds added. wean bipap as tolerated. Carola Paris Nov 23, 2016 09:09 Jose Peralta MD Nov 23, 2016 17:44
[2016-11-23] MEDS ORDERED: RESP: ALBUTEROL 2.5 MG/IPRATROPIUM 0.5 MG NEB (SCH) NEB (10:00)
[2016-11-23 10:52] LABS: BLOOD GAS CARBOXYHEMOGLOBIN 1.5 % (0-4); BLOOD GAS HCO3 30 mmol/L (22-26); BLOOD GAS METHEMOGLOBIN 0.5 % (0-2); BLOOD GAS O2 HGB SATURATION 90 % (90-100); BLOOD GAS PCO2 69 mmHg (38-42); BLOOD GAS PO2 70 mmHG (61-120); BLOOD GAS TOTAL HGB 11.1 G/DL (12.0-16.0); TEMP CORR TO 98.6
[2016-11-23 10:53] LABS: CRITICAL VALUE YES; DRAW SITE RT RADIAL; FIO2 35 %; NUMBER OF ARTERIAL PUNCTURES 1; OXYGEN DEVICE BIPAP; STAT NO; ULNAR PULSE PRESENT
[2016-11-23] MEDS: ENOXAPARIN SODIUM 40 MG/0.4 ML SYRINGE SQ SCH (11:30)
[2016-11-23] MEDS: methylPREDNISolone SOD SUCC 125 MG/2 ML VIAL IV PUSH SCH ×3 (12:00→23:40)
--- NOTE | 2016-11-23 15:33 | HHI.PR ---
Subjective Remarks late charting patient seen 11/23/16 at 0741 Patient initially obtunded Objective Vitals Vital Signs Date Time Temp Pulse Resp B/P (MAP) Pulse Ox O2 Delivery O2 Flow Rate FiO2 11/23/16 14:01 76 11/23/16 13:07 78 11/23/16 12:15 98.7 74 20 168/92 (117) 98 11/23/16 12:15 98 Bi-Pap 11/23/16 12:15 74 11/23/16 12:07 98 30 11/23/16 11:31 97 35 11/23/16 11:13 98.6 77 18 159/87 (111) 95 11/23/16 08:30 99 30 11/23/16 07:23 98.5 100 18 195/80 (118) 93 11/23/16 04:49 98.3 93 16 145/92 (109) 92 11/23/16 04:27 11/23/16 01:52 90 24 168/78 (108) 94 Nasal Cannula 2.00 11/22/16 22:38 24 99 Nasal Cannula 11/22/16 22:10 98 Nasal Cannula 2.00 11/22/16 21:58 90 22 162/105 (124) 92 Nasal Cannula 11/22/16 21:56 99.1 96 20 191/101 (131) 92 Room Air 11/22/16 21:55 89 Nasal Cannula 2.00 11/23/16 11/23/16 11/24/16 15:00 23:00 07:00 Intake Total 340 ml Balance 340 ml Intake Oral 240 ml IV Total 100 ml # Voids 1 Result Diagram: 11/22/16222911/23/16 0055 A/P Problem List: (1) Respiratory acidosis ICD Codes: E87.2 - Acidosis Plan: Patient with respiratory acidosis and hypercapnia Asthma exacerbation Stat ABG obtained reveals pH of 7.23, PCO2 of 75, PO2 of 66, base excess of 3.0 , bicarbonate 30 Place patient on BiPAP Recheck ABG and one hour Would like to transfer patient to [facility], patient's mother is currently in ICU with trach patient refusing ICU placement agreeable to [facility] Solu-Medrol 125 mg given in ER yesterday will continue Solu-Medrol at 60 mg every 6 hours Duo nebs every 4 hours scheduled with every 2 to hours as needed Early pneumonia Chest x-ray reviewed and reveals lobar consolidation left lower right lung Continue azithromycin and Rocephin Supportive care Hypertension patient not on home medication and We'll monitor blood pressure trend DVT prophylaxis with Lovenox (2) Hypercapnemia ICD Codes: R06.89 - Other abnormalities of breathing (3) Asthma exacerbation ICD Codes: J45.901 - Unspecified asthma with (acute) exacerbation Status: Acute (4) Morbid obesity with body mass index (BMI) of 60.0 to 69.9 in adult ICD Codes: E66.01 - Morbid (severe) obesity due to excess calories; Z68.44 - Body mass index (BMI) 60.0-69.9, adult Carola Paris Nov 23, 2016 15:33
[2016-11-23] MEDS ORDERED: ENALAPRILAT 2.5 MG/2 ML VIAL IV PUSH PRN (16:30)
[2016-11-23] MEDS ORDERED: ACETAMINOPHEN 500 MG CPLT PO PRN (16:30)
[2016-11-23] MEDS ORDERED: cloNIDine HCL 0.1 MG TAB PO PRN (17:30)
--- NOTE | 2016-11-23 19:28 | EKG ---
Date Performed: 11/22/2016 Time Performed: 22:45:04 PTAGE: 26 years EKG: Sinus rhythm POSSIBLE LEFT ATRIAL ENLARGEMENT NONSPECIFIC T-WAVE ABNORMALITY BORDERLINE ECG PREVIOUS TRACING : 02/27/2016 00.59 Compared to prior tracing no significant change DOCTOR: Hamilton Pratt Interpretating Date/Time 11/23/2016 19:26:18
[2016-11-23 20:03] LABS: BETA HCG QUANT LESS THAN 1 MIU/ML (0-5)
[2016-11-23] MEDS: NIFEdipine 30 MG SUSTAINED RELEASE TAB PO SCH (21:17)
[2016-11-24] VITALS (21 sets, daily range): BP systolic 144–176; BP diastolic 77–90; PULSE 54–97; RESP 14–18; TEMP 97–98.7; O2SAT 90–100
[2016-11-24] MEDS: RESP: ALBUTEROL 2.5 MG/IPRATROPIUM 0.5 MG NEB (SCH) NEB ×3 (04:27→16:15)
[2016-11-24] MEDS: cefTRIAXone 1,000 MG/NS 100 ML IV SCH ×2 (06:00)
[2016-11-24] MEDS: methylPREDNISolone SOD SUCC 125 MG/2 ML VIAL IV PUSH SCH ×2 (06:14→12:53)
--- NOTE | 2016-11-24 08:32 | HHI.PR ---
Subjective Remarks discussed with RN who says pt was awake and appropriate during her shift currently pt sleeping and on bipap Objective Vitals bipap haert reg lung good air entry abd s/nt ext no edema Vital Signs Date Time Temp Pulse Resp B/P (MAP) Pulse Ox O2 Delivery O2 Flow Rate FiO2 11/24/16 06:03 97 11/24/16 05:01 92 30 11/24/16 05:00 80 11/24/16 04:00 76 11/24/16 03:00 98.0 75 18 175/90 (118) 96 11/24/16 03:00 96 Bi-Pap 11/24/16 03:00 78 11/24/16 02:00 82 11/24/16 01:21 90 30 11/24/16 01:00 76 11/24/16 00:00 80 11/23/16 23:00 98.5 78 18 143/80 (101) 97 11/23/16 23:00 97 Bi-Pap 11/23/16 23:00 86 11/23/16 22:01 95 30 11/23/16 22:00 84 11/23/16 21:00 86 11/23/16 20:00 88 11/23/16 19:00 86 11/23/16 19:00 96 Nasal Cannula 4.00 11/23/16 19:00 96 Nasal Cannula 4.00 11/23/16 19:00 97.9 84 18 158/80 (106) 96 11/23/16 18:08 78 11/23/16 17:46 18 11/23/16 17:03 82 11/23/16 16:31 91 20 151/89 (109) 92 Automatic Cuff 11/23/16 16:10 87 11/23/16 15:36 91 11/23/16 15:36 98.4 91 22 193/88 (123) 94 11/23/16 15:36 94 Nasal Cannula 11/23/16 15:36 94 Nasal Cannula 11/23/16 14:01 76 11/23/16 13:07 78 11/23/16 12:15 98.7 74 20 168/92 (117) 98 11/23/16 12:15 98 Bi-Pap 11/23/16 12:15 74 11/23/16 12:07 98 30 11/23/16 11:31 97 35 11/23/16 11:13 98.6 77 18 159/87 (892) 63 Result Diagram: 11/22/16222911/23/16 0055 Imaging Last Impressions Chest X-Ray 11/22/162199 Signed Impressions: Service Date/Time: Tuesday, November 22, 2016 22:10 - CONCLUSION: Lobar consolidation left lower lung. Rudy Bronson MD A/P Problem List: (1) Respiratory acidosis ICD Codes: E87.2 - Acidosis Plan: Patient with respiratory acidosis and hypercapnia Asthma exacerbation possible early pna htn Stat ABG obtained revealed pH of 7.23, PCO2 of 75, PO2 of 66, base excess of 3.0 , bicarbonate 30 pt on bipap all day and overnight. try to assess off bipap and oob with PT this AM cont abx/nebs/steroids procardia added for bp DVT prophylaxis addendum; Pt wide awake and ambulating. no cp and breathing much better. she is insisting on d/c. she is on room air. I offered to observe 1 more night but she refused. I would worry about a safe transition to home because an adult nebulizer not delivered yet. she says she will use her son's nebulizer. she will obtain pcp from [facility]. get referral for sleep study. (2) Asthma exacerbation ICD Codes: J45.901 - Unspecified asthma with (acute) exacerbation Status: Acute (3) Morbid obesity with body mass index (BMI) of 60.0 to 69.9 in adult ICD Codes: E66.01 - Morbid (severe) obesity due to excess calories; Z68.44 - Body mass index (BMI) 60.0-69.9, adult Jose Peralta MD Nov 24, 2016 08:32
[2016-11-24] MEDS: ENOXAPARIN SODIUM 40 MG/0.4 ML SYRINGE SQ SCH (10:35)
[2016-11-24] MEDS: AZITHROMYCIN 500 MG/NS 250 ML IV SCH ×2 (10:36)
[2016-11-24] MEDS: NIFEdipine 30 MG SUSTAINED RELEASE TAB PO SCH (10:36)
[2016-11-24] MEDS ORDERED: PRED10 PO (16:46)
[2016-11-24] MEDS ORDERED: NIFE30TA8 PO (16:46)
[2016-11-24] MEDS ORDERED: VENTAER INH (16:46)
[2016-11-24] MEDS ORDERED: LEVA500T20 PO (16:46)
[2016-11-24] MEDS ORDERED: ALBU0.08 NEB (16:46)
[2016-11-24] MEDS ORDERED: NEBULIZER/ADULT1 KIT (16:47)
--- NOTE | 2016-11-24 16:49 | HHI.DCPOC ---
Discharge Care Plan Diagnosis: (1) HTN (hypertension) (2) Sleep apnea (3) Respiratory acidosis (4) Asthma exacerbation Goals to Promote Your Health * To prevent worsening of your condition and complications * To maintain your health at the optimal level Directions to Meet Your Goals Take your medications as prescribed Follow your dietary instruction Follow activity as directed Keep your appointments as scheduled Take your immunizations and boosters as scheduled If your symptoms worsen call your PCP, if no PCP go to Urgent Care Center or Emergency Room Smoking is Dangerous to Your Health. Avoid second hand smoke Call the 24-hour hour crisis hotline for domestic abuse at Jose Peralta MD Nov 24, 2016 16:49
== END 2016-11-24 17:31 | disposition home or self-care (01) ==
LOC: NEPD 21:32 → NEDA 11-23 02:00 → NEPHCDU 11-23 04:38 → HCIS 11-23 11:47
PROVIDERS: ADMIT Hospitalist; ATTEND Hospitalist
DX: E87.2 Acidosis (principal); J45.901 Unspecified asthma with (acute) exacerbation; J18.1 Lobar pneumonia, unspecified organism; R00.0 Tachycardia, unspecified; I11.0 Hypertensive heart disease with heart failure; I50.9 Heart failure, unspecified; G47.30 Sleep apnea, unspecified; F41.9 Anxiety disorder, unspecified; F31.9 Bipolar disorder, unspecified; E66.01 Morbid (severe) obesity due to excess calories; Z68.44 Body mass index [BMI] 60.0-69.9, adult
CPT/HCPCS: 36600; 71010; 80053; 82805; 83735; 83880; 84702; 85025; 87804; 93005; 94002; 94640; 94664; 96365; 96366; 96372; 96375; 96376; G0378; G8987-GP; G8988-GP; J0456; J0696; J1650; J1940; J2405; J2930; J7050

== ENCOUNTER 2016-12-14 07:26 | Inpatient (IN) | payer OTHER ==
[~2016-12-14] VITALS: Ht 157.5 cm; Wt 147.0 kg
[2016-12-14] VITALS (9 sets, daily range): BP systolic 134–170; BP diastolic 67–95; PULSE 73–102; RESP 18–22; TEMP 97.1–99.6; O2SAT 80–96
[~2016-12-14 07:26] MED LIST changes: +ALBU0.08 NEB; -FURO1TAB60 PO; +LEVA500T20 PO; +NEBULIZER/ADULT1 KIT; +NIFE30TA8 PO; +PRED10 PO; -SUDA120T6 PO; -TYLE325T PO; +VENTAER INH
[2016-12-14] MEDS ORDERED: SODIUM CHLORIDE 0.9% FLUSH 10 ML FLUSH IVF PRN (08:00)
[2016-12-14] MEDS ORDERED: methylPREDNISolone SOD SUCC 125 MG/2 ML VIAL IV PUSH ONE (08:00)
--- NOTE | 2016-12-14 08:00 | PD ---
HPI Chief Complaint: Respiratory Symptoms Time Seen by Provider: 07:42 Travel History International Travel<30 days: No Contact w/Intl Traveler<30days: No Traveled to known affect area: No History of Present Illness HPI The patient is a 26-year-old after [place] female who presents to the emergency department for shortness of breath. The patient states she developed shortness of breath yesterday, used her albuterol inhaler approximately 7 times with minimal relief of her symptoms. The patient does have a history of asthma and has been placed on BiPAP/C Pap in the past, but denies any history of previous intubation. The patient also denies any history of pulmonary embolism or DVT. The last menstrual cycle was at the end of October. The patient was recently hospitalized for pneumonia and hypoxia, was discharged home. The patient does not currently have a primary physician or hand cutter apprentice. The patient does note a dry mostly nonproductive cough, shortness of breath, and chest tightness. The patient denies any fever, nausea, vomiting, or abdominal pain. Symptoms are moderate, possibly exacerbated by history of asthma, and there are no current alleviating factors. PFSH Past Medical History Hx Anticoagulant Therapy: No Asthma: Yes Autoimmune Disease: No Bipolar Disorder: Yes Anxiety: No Depression: Yes Cancer: No Cardiovascular Problems: Yes (EARLY CHF) Chemotherapy: No Congestive Heart Failure: Yes Diabetes: No Diminished Hearing: No Endocrine: No Gastrointestinal Disorders: No Genitourinary: No Hypertension: Yes Immune Disorder: No Implanted Vascular Access Dvce: No Insomnia: Yes Musculoskeletal: Yes Neurologic: Yes (numbness/tingling in hands & feet) Psychiatric: No Reproductive: No Respiratory: Yes (ASTHMA) Immunizations Current: Yes Radiation Therapy: No ?: Not Menopausal: No : 1 Para: 1 Miscarriage: 0 : 0 Past Surgical History AICD: No Arteriovenous Shunt: No Section: Yes Gynecologic Surgery: Yes () Hysterectomy: No Insulin Pump: No Joint Replacement: No Pacemaker: No Social History Alcohol Use: No Tobacco Use: No Substance Use: No Allergies-Medications (Allergen,Severity, Reaction): Coded Allergies: No Known Allergies (Verified , 12/14/16) Reported Meds & Prescriptions Reported Meds & Active Scripts Active Nebulizer/Adult Mask (N/A) 1 Kit Kit Kit .ROUTE DIRECTED Albuterol Neb (Albuterol Sulfate) 2.5 Mg/3 Ml Neb 2.5 Mg NEB QID NEB Ventolin Hfa 18 GM Inh (Albuterol Sulfate) 90 Mcg/Act Aer 2 Puff INH Q4H PRN Nifedipine ER 24 HR (Nifedipine) 30 Mg Tab 30 Mg PO BID Review of Systems Except as stated in HPI: all other systems reviewed are Neg General / Constitutional: No: Fever HENT: No: Lightheadedness Cardiovascular: Positive: Chest Pain or Discomfort (tightness) Respiratory: Positive: Cough, Shortness of Breath, Wheezing Gastrointestinal: No: Nausea, Vomiting, Abdominal Pain Musculoskeletal: No: Edema Neurologic: No: Dizziness Physical Exam Narrative GENERAL: Awake, alert, pleasant 26-year-old female appears her stated age and is in mild respiratory distress. SKIN: Focused skin assessment warm/dry. HEAD: Atraumatic. Normocephalic. EYES: Pupils equal and round. No scleral icterus. No injection or drainage. ENT: No nasal bleeding or discharge. Mucous membranes pink and moist. NECK: Trachea midline. No JVD. CARDIOVASCULAR: Regular, tachycardic with a heart rate of 105. RESPIRATORY: No accessory muscle use. Diminished breath sounds but no audible wheezing. GASTROINTESTINAL: Abdomen soft, obese, no rebound tenderness. MUSCULOSKELETAL: No obvious deformities. No clubbing. No cyanosis. No edema. NEUROLOGICAL: Awake and alert. No obvious cranial nerve deficits. Motor grossly within normal limits. Normal speech. PSYCHIATRIC: Appropriate mood and affect; insight and judgment normal. Data Data Last Documented VS Vital Signs Date Time Temp Pulse Resp B/P (MAP) Pulse Ox O2 Delivery O2 Flow Rate FiO2 12/14/16 08:10 91 Nasal Cannula 3.00 12/14/16 07:49 99.6 100 20 170/75 (106) Orders Orders Complete Blood Count With Diff (12/14/16 07:46) Comprehensive Metabolic Panel (12/14/16 07:46) B-Type Natriuretic Peptide (12/14/16 07:46) Act Partial Throm Time (Ptt) (12/14/16 07:46) Prothrombin Time / Inr (Pt) (12/14/16 07:46) Magnesium (Mg) (12/14/16 07:46) Ckmb (Isoenzyme) Profile (12/14/16 07:46) Troponin I (12/14/16 07:46) Arterial Blood Gas (Abg) (12/14/16 07:46) Iv Access Insert/Monitor (12/14/16 07:46) Electrocardiogram (12/14/16 07:46) Ecg Monitoring (12/14/16 07:46) Oximetry (12/14/16 07:46) Oxygen Administration (12/14/16 07:46) Chest, Single Ap (12/14/16 07:46) Ct Pulmonary Angiogram (12/14/16 07:46) Sodium Chloride 0.9% Flush (Ns Flush) (12/14/16 08:00) Methylprednisolone So Succ Inj (Solumedr (12/14/16 08:00) Albuterol-Ipratropium Neb (Duoneb Neb) (12/14/16 08:00) CKMB (12/14/16 08:10) CKMB% (12/14/16 08:10) Ondansetron Inj (Zofran Inj) (12/14/16 09:23) Iohexol 350 Inj (Omnipaque 350 Inj) (12/14/16 09:47) Admit Order (Ed Use Only) (12/14/16 10:57) Labs Laboratory Tests Test 12/14/16 08:10 12/14/16 08:27 White Blood Count 18.9 TH/MM3 Red Blood Count 4.74 MIL/MM3 Hemoglobin 9.8 GM/DL Hematocrit 32.8 % Mean Corpuscular Volume 69.2 FL Mean Corpuscular Hemoglobin 20.7 PG Mean Corpuscular Hemoglobin Concent 29.9 % Red Cell Distribution Width 20.1 % Platelet Count 384 TH/MM3 Mean Platelet Volume 7.3 FL Neutrophils (%) (Auto) 78.2 % Lymphocytes (%) (Auto) 16.4 % Monocytes (%) (Auto) 4.4 % Eosinophils (%) (Auto) 0.7 % Basophils (%) (Auto) 0.3 % Neutrophils # (Auto) 14.8 TH/MM3 Lymphocytes # (Auto) 3.1 TH/MM3 Monocytes # (Auto) 0.8 TH/MM3 Eosinophils # (Auto) 0.1 TH/MM3 Basophils # (Auto) 0.1 TH/MM3 CBC Comment DIFF FINAL Differential Comment Prothrombin Time 11.0 SEC Prothromb Time International Ratio 1.0 RATIO Activated Partial Thromboplast Time 25.9 SEC Blood Urea Nitrogen 11 MG/DL Creatinine 0.87 MG/DL Random Glucose 144 MG/DL Total Protein 6.8 GM/DL Albumin 3.0 GM/DL Calcium Level 8.4 MG/DL Magnesium Level 1.7 MG/DL Alkaline Phosphatase 61 U/L Aspartate Amino Transf (AST/SGOT) 29 U/L Alanine Aminotransferase (ALT/SGPT) 29 U/L Total Bilirubin 1.3 MG/DL Sodium Level 139 MEQ/L Potassium Level 3.8 MEQ/L Chloride Level 100 MEQ/L Carbon Dioxide Level 28.1 MEQ/L Anion Gap 11 MEQ/L Estimat Glomerular Filtration Rate 94 ML/MIN Total Creatine Kinase 446 U/L Creatine Kinase MB 13.1 NG/ML Creatine Kinase MB % 2.9 % Troponin I 0.34 NG/ML B-Type Natriuretic Peptide 425 PG/ML Blood Gas Puncture Site RT RADIAL Blood Gas Patient Temperature 98.6 Blood Gas HCO3 31 mmol/L Blood Gas Base Excess 6.7 mmol/L Blood Gas Oxygen Saturation 42 % Arterial Blood pH 7.41 Arterial Blood Partial Pressure CO2 51 mmHg Arterial Blood Partial Pressure O2 29 mmHG Arterial Blood Oxygen Content 5.8 Vol % Arterial Blood Carboxyhemoglobin 1.9 % Arterial Blood Methemoglobin 0.6 % Blood Gas Hemoglobin 9.7 G/DL Oxygen Delivery Device NASAL CANNULA Blood Gas Liter Flow 3 L/M [facility] Medical Decision Making Medical Screen Exam Complete: Yes Emergency Medical Condition: Yes Medical Record Reviewed: Yes Interpretation(s) EKG reveals normal sinus rhythm with a rate in 97. Inverted T waves noted in lead V6, 1, and aVL. Laboratory Tests Test 12/14/16 08:10 12/14/16 08:27 White Blood Count 18.9 TH/MM3 Red Blood Count 4.74 MIL/MM3 Hemoglobin 9.8 GM/DL Hematocrit 32.8 % Mean Corpuscular Volume 69.2 FL Mean Corpuscular Hemoglobin 20.7 PG Mean Corpuscular Hemoglobin Concent 29.9 % Red Cell Distribution Width 20.1 % Platelet Count 384 TH/MM3 Mean Platelet Volume 7.3 FL Neutrophils (%) (Auto) 78.2 % Lymphocytes (%) (Auto) 16.4 % Monocytes (%) (Auto) 4.4 % Eosinophils (%) (Auto) 0.7 % Basophils (%) (Auto) 0.3 % Neutrophils # (Auto) 14.8 TH/MM3 Lymphocytes # (Auto) 3.1 TH/MM3 Monocytes # (Auto) 0.8 TH/MM3 Eosinophils # (Auto) 0.1 TH/MM3 Basophils # (Auto) 0.1 TH/MM3 CBC Comment DIFF FINAL Differential Comment Prothrombin Time 11.0 SEC Prothromb Time International Ratio 1.0 RATIO Activated Partial Thromboplast Time 25.9 SEC Blood Urea Nitrogen 11 MG/DL Creatinine 0.87 MG/DL Random Glucose 144 MG/DL Total Protein 6.8 GM/DL Albumin 3.0 GM/DL Calcium Level 8.4 MG/DL Magnesium Level 1.7 MG/DL Alkaline Phosphatase 61 U/L Aspartate Amino Transf (AST/SGOT) 29 U/L Alanine Aminotransferase (ALT/SGPT) 29 U/L Total Bilirubin 1.3 MG/DL Sodium Level 139 MEQ/L Potassium Level 3.8 MEQ/L Chloride Level 100 MEQ/L Carbon Dioxide Level 28.1 MEQ/L Anion Gap 11 MEQ/L Estimat Glomerular Filtration Rate 94 ML/MIN Total Creatine Kinase 446 U/L Creatine Kinase MB 13.1 NG/ML Creatine Kinase MB % 2.9 % Troponin I 0.34 NG/ML B-Type Natriuretic Peptide 425 PG/ML Blood Gas Puncture Site RT RADIAL Blood Gas Patient Temperature 98.6 Blood Gas HCO3 31 mmol/L Blood Gas Base Excess 6.7 mmol/L Blood Gas Oxygen Saturation 42 % Arterial Blood pH 7.41 Arterial Blood Partial Pressure CO2 51 mmHg Arterial Blood Partial Pressure O2 29 mmHG Arterial Blood Oxygen Content 5.8 Vol % Arterial Blood Carboxyhemoglobin 1.9 % Arterial Blood Methemoglobin 0.6 % Blood Gas Hemoglobin 9.7 G/DL Oxygen Delivery Device NASAL CANNULA Blood Gas Liter Flow 3 L/M Last Impressions Chest X-Ray 12/14/16745 Signed Impressions: Service Date/Time: Wednesday, December 14, 2016 08:44 - CONCLUSION: 1. Persistent left lower lobe airspace consolidation. This is suboptimally evaluated due to patient's body habitus on single portable view. Consider formal PA and lateral views of the chest for better evaluation. Josiha Victoria MD CT Angiography 12/14/16745 Signed Impressions: Service Date/Time: Wednesday, December 14, 2016 09:24 - CONCLUSION: 1. Diffuse groundglass density throughout both lungs. Diagnostic considerations include vascular congestion or possibly a hypersensitivity pneumonitis. 2. Cardiomegaly. 3. No PE. Jevon De Luna MD Differential Diagnosis Differential diagnosis includes asthma exacerbation, pneumonia, bronchitis, pulmonary embolism, congestive heart failure, volume overload, sepsis. Narrative Course IV was established, labs are drawn and sent, and the patient was placed on cardiac telemetry monitoring and continuous pulse oximetry monitoring. EKG was ordered and interpreted. CT pulmonary angiogram was ordered. The patient was administered Solu-Medrol 125 mg intravenously and duo nebs. The patient's troponin was positive at 0.34. The patient's chest x-rays unremarkable. CT pulmonary angiogram reveals diffuse groundglass density throughout both lungs, diagnostic considerations include vascular congestion or possibly hypersensitivity pneumonitis, cardiomegaly, no PE. Patient has an elevated troponin, slightly elevated BNP, may be acute congestive heart failure with underlying cardiomyopathy. The patient will be admitted as she is hypoxic with an O2 sat on room air of 85%. [facility], therefore, the on-[facility] physician was paged for admission. Physician Communication Physician Communication [facility] was paged for admission. I discussed the patient with Dr. Srinivasan who agrees with admission. Diagnosis Primary Impression: CHF (congestive heart failure) Qualified Codes: I50.9 - Heart failure, unspecified Additional Impressions: Hypoxia Elevated troponin Admitting Information Admitting Physician Requests: Admit Condition: Stable Kyaw Coates MD Dec 14, 2016 08:00
[2016-12-14] MEDS: RESP: ALBUTEROL 2.5 MG/IPRATROPIUM 0.5 MG NEB (SCH) INH ×2 (08:10→08:11)
[2016-12-14 08:33] LABS: AUTOMATED NEUTROPHIL # 14.8 TH/MM3 (1.8-7.7); BASOPHIL # 0.1 TH/MM3 (0-0.2); BASOPHIL % 0.3 % (0.0-2.0); EOSINOPHIL # 0.1 TH/MM3 (0-0.4); EOSINOPHIL % 0.7 % (0.0-4.0); HEMATOCRIT 32.8 % (35.0-46.0); HEMO FLAGS DIFF FINAL; LYMPH % 16.4 % (9.0-44.0); LYMPHOCYTE # 3.1 TH/MM3 (1.0-4.8); MEAN CELL VOLUME 69.2 FL (80.0-100.0); MEAN CORPUSCULAR HEMOGLOBIN 20.7 PG (27.0-34.0); MONO % 4.4 % (0.0-8.0); NEUT % 78.2 % (16.0-70.0); PLATELET COUNT 384 TH/MM3 (150-450); RED BLOOD COUNT 4.74 MIL/MM3 (4.00-5.30); RED CELL DISTRIBUTION WIDTH 20.1 % (11.6-17.2); WHITE BLOOD COUNT 18.9 TH/MM3 (4.0-11.0)
[2016-12-14 08:36] LABS: MEAN CORPUSCULAR HGB CONC 29.9 % (32.0-36.0)
[2016-12-14 08:43] LABS: BLOOD GAS BASE EXCESS 6.7 mmol/L (-2-2); BLOOD GAS CARBOXYHEMOGLOBIN 1.9 % (0-4); BLOOD GAS HCO3 31 mmol/L (22-26); BLOOD GAS METHEMOGLOBIN 0.6 % (0-2); BLOOD GAS O2 HGB SATURATION 42 % (90-100); BLOOD GAS OXYGEN CONTENT 5.8 Vol % (12.0-20.0); BLOOD GAS PCO2 51 mmHg (38-42); BLOOD GAS PO2 29 mmHG (61-120); BLOOD GAS TOTAL HGB 9.7 G/DL (12.0-16.0); TEMP CORR TO 98.6
[2016-12-14 08:44] LABS: APTT (PATIENT) 25.9 SEC (24.3-30.1)
[2016-12-14 08:45] LABS: CRITICAL VALUE YES; DRAW SITE RT RADIAL; LITER FLOW 3 L/M; OXYGEN DEVICE NASAL CANNULA
[2016-12-14 08:46] LABS: NUMBER OF ARTERIAL PUNCTURES 2; STAT YES; ULNAR PULSE PRESENT
[2016-12-14 09:01] LABS: ALT (GPT) 29 U/L (10-53); ANION GAP 11 MEQ/L (5-15); AST (GOT) 29 U/L (15-37); BICARBONATE 28.1 MEQ/L (21.0-32.0); BLOOD UREA NITROGEN 11 MG/DL (7-18); CHLORIDE 100 MEQ/L (98-107); GLOMERULAR FILTRATION RATE 94 ML/MIN (>89); MAGNESIUM 1.7 MG/DL (1.5-2.5); POTASSIUM 3.8 MEQ/L (3.5-5.1); SODIUM (NA) 139 MEQ/L (136-145)
[2016-12-14 09:05] LABS: ALKALINE PHOSPHATASE 61 U/L (45-117); CREATINE KINASE 446 U/L (26-192); TOTAL BILIRUBIN ADULT 1.3 MG/DL (0.2-1.0)
[2016-12-14 09:17] LABS: CKMB 13.1 NG/ML (0.5-3.6)
[2016-12-14] MEDS ORDERED: ONDANSETRON HCL 4 MG/2 ML VIAL ONE (09:23)
--- NOTE | 2016-12-14 09:28 | RADRPT ---
EXAM DATE/TIME: 12/14/2016 08:44 [facility] COMPARISON: CHEST SINGLE AP, November 22, 2016, 22:10. INDICATIONS : Shortness of breath. Chest pain. MEDICAL HISTORY : Hypertension. Asthma. SURGICAL HISTORY : None. ENCOUNTER: Initial ACUITY: 3 days PAIN SCORE: 9/10 LOCATION: chest midline. FINDINGS: Continued left lower lobe airspace consolidation. Cardiomediastinal contours are stable. Remainder of exam is unchanged. CONCLUSION: 1. Persistent left lower lobe airspace consolidation. This is suboptimally evaluated due to patient's body habitus on single portable view. Consider formal PA and lateral views of the chest for better e valuation. Josiah Victoria MD on December 14, 2016 at 9:24 Board Certified Radiologist. This report was verified electronically.
[2016-12-14] MEDS ORDERED: IOHEXOL 350 MG/ML 10 ML VIAL (for RAD DIAG) IVCONTRAST ONE (09:47)
--- NOTE | 2016-12-14 09:57 | RADRPT ---
EXAM DATE/TIME: 12/14/2016 09:24 [facility] COMPARISON: CHEST SINGLE AP, November 22, 2016, 22:10. INDICATIONS : Shortness of breath for three days. IV CONTRAST: 75 cc Omnipaque 350 (iohexol) IV RADIATION DOSE: 25.99 CTDIvol (mGy) ; Patient body habitus MEDICAL HISTORY : Congestive hearrt failure. Hypertension. SURGICAL HISTORY : None. ENCOUNTER: Initial ACUITY: 1 day PAIN SCALE: 0/10 LOCATION: Bilateral chest TECHNIQUE: Volumetric scanning of the chest was performed using a pulmonary embolism protocol MIP images were re constructed. Using automated exposure control and adjustment of the mA and/or kV according to patien t size, radiation dose was kept as low as reasonably achievable to obtain optimal diagnostic quality images. DICOM format image data is available electronically for review and comparison. Follow-up recommendations for detected pulmonary nodules are based at a minimum on nodule size and pa tient risk factors according to Fleischner Society Guidelines. FINDINGS: PULMONARY ARTERIES: No filling defects are seen in the pulmonary arteries through the segmental level. LUNGS: Diffuse glass density throughout both lungs. Punctate granulomatous type calcification in the perihil ar distribution of the right upper lobe. PLEURAE: There is no pleural thickening or pleural effusion. MEDIASTINUM: There is good visualization of the great vessels of the middle mediastinum. No evidence of mediastin al or hilar adenopathy/mass. Heart size is prominent. MUSCULOSKELETAL: Within normal limits for patient age. MISCELLANEOUS: The visualized upper abdominal organs demonstrate no acute abnormality. CONCLUSION: 1. Diffuse groundglass density throughout both lungs. Diagnostic considerations include vascular jere estion or possibly a hypersensitivity pneumonitis. 2. Cardiomegaly. 3. No PE. Jevon De Luna MD on December 14, 2016 at 9:52 Board Certified Radiologist. This report was verified electronically.
[2016-12-14] MEDS ORDERED: MAGNESIUM HYDROXIDE SUSP 30 ML CUP PO PRN (11:00)
[2016-12-14] MEDS ORDERED: NALOXONE HCL 0.4 MG/ML AMP IV PUSH PRN (11:00)
[2016-12-14] MEDS ORDERED: ONDANSETRON HCL 4 MG/2 ML VIAL IVP PRN (11:00)
[2016-12-14] MEDS ORDERED: ACETAMINOPHEN 325 MG TAB PO PRN (11:00)
[2016-12-14] MEDS ORDERED: SODIUM CHLORIDE 0.9% FLUSH 10 ML FLUSH IV FLUSH PRN (11:00)
[2016-12-14] MEDS ORDERED: RESP: ALBUTEROL 2.5 MG/IPRATROPIUM 0.5 MG NEB (PRN) NEB (11:15)
--- NOTE | 2016-12-14 11:53 | HHI.HP ---
HPI Service CP Hospitalists Primary Care Physician No Primary Care Physician Admission Diagnosis CHF, dyspnea, elevated troponin Chief Complaint: SOB Travel History International Travel<30 Days: No Contact w/Intl Traveler <30 Da: No Traveled to Known Affected Are: No History of Present Illness Mrs. Cruz is a 26 y/o obese AAF with asthma, hypertension and CHF after childbirth 2 years ago. Pt was recently admitted to [facility] from 11/23-11/24 for respiratory acidosis and hypercapnia with asthma exacerbation and possible early pneumonia. She required BiPAP all day and overnight during that admission but once she was off the BiPAP she insisted on discharge and left without a nebulizer. Pt reported has been using the Ventolin inhaler and Albuterol nebulizer as needed. She presented back to the ED at [facility] on 12/14/16 with complaints of SOB x 2 days and some slight wheezing. The patient does note a dry mostly nonproductive cough, shortness of breath, and chest tightness. She also complains swelling in the left leg x 3 days. She has problems with daytime fatigue and snoring during the day. Yesterday she used her albuterol inhaler approximately 7 times with minimal relief of her symptoms. In the ED she had an ABG done which noted pH of 7.41, PCO2 of 51, PO2 of 29, base excess of 6.7, bicarbonate 31. CXR in the ED noted persistent left lower lobe airspace consolidation but this is suboptimally evaluated due to patient's body habitus on single portable view. CTA was negative for PE but noted diffuse ground-glass density throughout both lungs, diagnostic considerations include vascular congestion or possibly a hypersensitivity pneumonitis, and cardiomegaly. The patient denies any fever, nausea, vomiting, or abdominal pain. The last menstrual cycle was at the end of October. 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 Review of Systems Constitutional: COMPLAINS OF: Fatigue, DENIES: Fever, Weight loss, Chills Eyes: DENIES: Vision loss Ears, nose, mouth, throat: DENIES: Hearing loss Respiratory: COMPLAINS OF: Cough, Wheezing, Shortness of breath Cardiovascular: COMPLAINS OF: Dyspnea on Exertion, Lower Extremity Edema, DENIES: Chest pain, Palpitations Gastrointestinal: DENIES: Abdominal pain, Constipation, Diarrhea, Nausea, Vomiting Genitourinary: DENIES: Urinary frequency, Urinary incontinence, Urgency Musculoskeletal: DENIES: Back pain Integumentary: DENIES: Rash Neurologic: DENIES: Headache Psychiatric: DENIES: Confusion Past Family Social History Past Medical History Asthma Hypertension CHF after childbirth 2 years ago Past Surgical History section Reported Medications Albuterol Neb (Albuterol Sulfate) 2.5 Mg/3 Ml Neb 2.5 Mg NEB QID NEB Ventolin Hfa 18 GM Inh (Albuterol Sulfate) 90 Mcg/Act Aer 2 Puff INH Q4H PRN Nifedipine ER 24 HR (Nifedipine) 30 Mg Tab 30 Mg PO BID Allergies: Coded Allergies: No Known Allergies (Verified , 12/14/16) Family History Several family members with HTN and diabetes Social History Estrada any alcohol, tobacco or illicit drug use 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 SKIN: No rashes, ecchymoses or lesions. Cool and dry. HEENT: Atraumatic. Normocephalic. No temporal or scalp tenderness. No scleral icterus. Airway patent. NECK: Trachea midline, supple, nontender. CARDIO: Regular. RESP: CTA bilaterally. No wheezes, rales, or rhonchi. ABD: +BS, soft, non-tender, nondistended. EXT: Mild bilateral LE edema. NEURO: Awake and alert. Motor and sensory grossly within normal limits. Normal speech. Laboratory Laboratory Tests Test 12/14/16 08:10 12/14/16 08:27 White Blood Count 18.9 Red Blood Count 4.74 Hemoglobin 9.8 Hematocrit 32.8 Mean Corpuscular Volume 69.2 Mean Corpuscular Hemoglobin 20.7 Mean Corpuscular Hemoglobin Concent 29.9 Red Cell Distribution Width 20.1 Platelet Count 384 Mean Platelet Volume 7.3 Neutrophils (%) (Auto) 78.2 Lymphocytes (%) (Auto) 16.4 Monocytes (%) (Auto) 4.4 Eosinophils (%) (Auto) 0.7 Basophils (%) (Auto) 0.3 Neutrophils # (Auto) 14.8 Lymphocytes # (Auto) 3.1 Monocytes # (Auto) 0.8 Eosinophils # (Auto) 0.1 Basophils # (Auto) 0.1 CBC Comment DIFF FINAL Differential Comment Prothrombin Time 11.0 Prothromb Time International Ratio 1.0 Activated Partial Thromboplast Time 25.9 Blood Urea Nitrogen 11 Creatinine 0.87 Random Glucose 144 Total Protein 6.8 Albumin 3.0 Calcium Level 8.4 Magnesium Level 1.7 Alkaline Phosphatase 61 Aspartate Amino Transf (AST/SGOT) 29 Alanine Aminotransferase (ALT/SGPT) 29 Total Bilirubin 1.3 Sodium Level 139 Potassium Level 3.8 Chloride Level 100 Carbon Dioxide Level 28.1 Anion Gap 11 Estimat Glomerular Filtration Rate 94 Total Creatine Kinase 446 Creatine Kinase MB 13.1 Creatine Kinase MB % 2.9 Troponin I 0.34 B-Type Natriuretic Peptide 425 Blood Gas Puncture Site RT RADIAL Blood Gas Patient Temperature 98.6 Blood Gas HCO3 31 Blood Gas Base Excess 6.7 Blood Gas Oxygen Saturation 42 Arterial Blood pH 7.41 Arterial Blood Partial Pressure CO2 51 Arterial Blood Partial Pressure O2 29 Arterial Blood Oxygen Content 5.8 Arterial Blood Carboxyhemoglobin 1.9 Arterial Blood Methemoglobin 0.6 Blood Gas Hemoglobin 9.7 Oxygen Delivery Device NASAL CANNULA Blood Gas Liter Flow 3 Result Diagram: 12/14/1680912/14/16809 Imaging Last Impressions Chest X-Ray 12/14/16745 Signed Impressions: Service Date/Time: Wednesday, December 14, 2016 08:44 - CONCLUSION: 1. Persistent left lower lobe airspace consolidation. This is suboptimally evaluated due to patient's body habitus on single portable view. Consider formal PA and lateral views of the chest for better evaluation. Josiah Victoria MD CT Angiography 12/14/16745 Signed Impressions: Service Date/Time: Wednesday, December 14, 2016 09:24 - CONCLUSION: 1. Diffuse groundglass density throughout both lungs. Diagnostic considerations include vascular congestion or possibly a hypersensitivity pneumonitis. 2. Cardiomegaly. 3. No PE. Jevon De Luna MD Septic Shock Reassessment Heart: Regular rate and rhythm Lungs: Clear Skin: Warm Caprini VTE Risk Assessment Caprini VTE Risk Assessment: No/Low Risk (score <= 1) Caprini Risk Assessment Model Point Value = 1 Point Value = 2 Point Value = 3 Point Value = 5 Age 41-60 Minor surgery BMI > 25 kg/m2 Swollen legs Varicose veins or History of unexplained or recurrent spontaneous Oral contraceptives or hormone replacement Sepsis (< 1 month) Serious lung disease, including pneumonia (< 1 month) Abnormal pulmonary function Acute myocardial infarction Congestive heart failure (< 1 month) History of inflammatory bowel disease Medical patient at bed rest Age 61-74 Arthroscopic surgery Major open surgery (> 45 min) Laparoscopic surgery (> 45 min) Malignancy Confined to bed (> 72 hours) Immobilizing plaster cast Central venous access Age >= 75 History of VTE Family history of VTE Factor V Leiden Prothrombin [id number] Lupus anticoagulant Anticardiolipin antibodies Elevated serum homocysteine Heparin-induced thrombocytopenia Other congenital or acquired thrombophilia Stroke (< 1 month) Elective arthroplasty Hip, pelvis, or leg fracture Acute spinal cord injury (< 1 month) Prophylaxis Regimen Total Risk Factor Score Risk Level Prophylaxis Regimen 0-1 Low Early ambulation 2 Moderate Order ONE of the following: *Sequential Compression Device (SCD) *Heparin 5000 units SQ BID 3-4 Higher Order ONE of the following medications: *Heparin 5000 units SQ TID *Enoxaparin/Lovenox 40 mg SQ daily (WT < 150 kg, CrCl > 30 mL/min) *Enoxaparin/Lovenox 30 mg SQ daily (WT < 150 kg, CrCl > 10-29 mL/min) *Enoxaparin/Lovenox 30 mg SQ BID (WT < 150 kg, CrCl > 30 mL/min) AND/OR *Sequential Compression Device (SCD) 5 or more Highest Order ONE of the following medications: *Heparin 5000 units SQ TID (Preferred with Epidurals) *Enoxaparin/Lovenox 40 mg SQ daily (WT < 150 kg, CrCl > 30 mL/min) *Enoxaparin/Lovenox 30 mg SQ daily (WT < 150 kg, CrCl > 10-29 mL/min) *Enoxaparin/Lovenox 30 mg SQ BID (WT < 150 kg, CrCl > 30 mL/min) AND *Sequential Compression Device (SCD) Assessment and Plan Problem List: (1) Hypoxia ICD Codes: R09.02 - Hypoxemia Status: Acute Plan: - Pt is a 26 y/o obese AAF with asthma, hypertension and CHF after childbirth 2 years ago. - Pt was recently admitted to [facility] [place] [facility] from 11/23-11/24 for respiratory acidosis and hypercapnia with asthma exacerbation and possible early pneumonia. She required BiPAP during that admission but once she was off the BiPAP she insisted on discharge and left without a nebulizer. Pt reported has been using the Ventolin inhaler and Albuterol nebulizer as needed. - She presented back to the ED at [facility] on 12/14/16 with complaints of SOB, some slight wheezing, dry nonproductive cough, shortness of breath, and chest tightness x 2 days. She also complains swelling in the left leg x 3 days. She has problems with daytime fatigue and snoring during the day. She had no relief with albuterol inhaler used approximately 7 times this morning. - In the ED she had an ABG done which noted pH of 7.41, PCO2 of 51, PO2 of 29, base excess of 6.7, bicarbonate 31. - CXR (12/14) --> persistent left lower lobe airspace consolidation but this is suboptimally evaluated due to patient's body habitus on single portable view. - CTA (12/14) --> was negative for PE but noted diffuse ground-glass density throughout both lungs, diagnostic considerations include vascular congestion or possibly a hypersensitivity pneumonitis, and cardiomegaly. - Her troponin was mildly elevated at 0.34 and her BNP is 425 as well. - We will get serial CE - Check 2D echo - Telemetry - CPAP - Consult pulmonary medicine - Pt likely with undiagnosed TUAN as she has not has outpt sleep study - Schedule duonebs - Solu-Medrol - Supportive care - DVT prophylaxis (2) Sleep apnea ICD Codes: G47.30 - Sleep apnea, unspecified Plan: - Pt has not formally undergone sleep study but most likely has TUAN given her body habitus and reported snoring and daytime fatigue - CPAP (3) Asthma exacerbation ICD Codes: J45.901 - Unspecified asthma with (acute) exacerbation Status: Acute Plan: - Its not clear that the pt is having just an asthma exacerbation given findings on imaging - Give Solu-Medrol and Duonebs - Monitor clinical status (4) HTN (hypertension) ICD Codes: I10 - Essential (primary) hypertension Status: Chronic Plan: - Home meds continued (5) Morbid obesity with BMI of 50.0-59.9, adult ICD Codes: E66.01 - Morbid (severe) obesity due to excess calories; Z68.43 - Body mass index (BMI) 50-59.9 , adult Status: Chronic Assessment and Plan Patient examined. Assessment and plan formulated with Kristen Casiano PA-C. I agree with the above. Physician Certification 2 Midnight Certification Type: Admission for Inpatient Services Order for Inpatient Services The services are ordered in accordance with Medicare regulations or non- Medicare payer requirements, as applicable. In the case of services not specified as inpatient-only, they are appropriately provided as inpatient services in accordance with the 2-midnight benchmark. Estimated LOS (days): 3 3 days is the estimated time the patient will need to remain in the hospital, assuming treatment plan goals are met and no additional complications. Post-Hospital Plan: Home Kristen Casiano Dec 14, 2016 11:53 Eliud Srinivasan DO Dec 16, 2016 20:11
[2016-12-14] MEDS: RESP: ALBUTEROL 2.5 MG/IPRATROPIUM 0.5 MG NEB (SCH) NEB ×2 (12:30→20:00)
[2016-12-14] MEDS: ENOXAPARIN SODIUM 40 MG/0.4 ML SYRINGE SQ SCH (13:07)
--- NOTE | 2016-12-14 13:28 | ECHRPT ---
Indication: CONCLUSIONS Very technically difficult study. The left ventricle is not well visualized. The left ventricular systolic function is low normal with an estimated ejection fraction in the rang e of 50- 55%. Normal left ventricular size. The tricuspid valve is not well visualized. There is trace tricuspid valve regurgitation. Pulmonary arterial systolic pressure could not be estimated due to an insufficient tricuspid valve regurgitation doppler jet for measurement. BP: / HR: Rhythm: MEASUREMENTS (Male / Female) Normal Values Technical Quality:Very technically difficult study 2D ECHO LV Diastolic Diameter PLAX 4.9 cm 4.2 - 5.9 / 3.9 - 5.3 cm LV Systolic Diameter PLAX 3.8 cm IVS Diastolic Thickness 1.2 cm 0.6 - 1.0 / 0.6 - 0.9 cm LVPW Diastolic Thickness 1.7 cm 0.6 - 1.0 / 0.6 - 0.9 cm LV Relative Wall Thickness 0.6 RV Internal Dim ED PLAX 3.9 cm M-MODE Aortic Root Diameter MM 3.0 cm LA Systolic Diameter MM 3.4 cm LA Ao Ratio MM 1.1 AV Cusp Separation MM 2.0 cm DOPPLER LV E' Lateral Velocity 10.3 cm/s LV E' Septal Velocity 11.3 cm/s TR Peak Velocity 232.0 cm/s TR Peak Gradient 21.5 mmHg Right Atrial Pressure 10.0 mmHg Pulmonary Artery Systolic Pressu 31.5 mmHg Right Ventricular Systolic Press 31.5 mmHg FINDINGS LEFT VENTRICLE The left ventricle is not well visualized. The left ventricular systolic function is low normal with an estimated ejection fraction in the rang e of 50- 55%. Normal left ventricular size. RIGHT VENTRICLE Normal right ventricular size and systolic function. LEFT ATRIUM The left atrial size is normal. RIGHT ATRIUM The right atrial size is normal. ATRIAL SEPTUM Normal atrial septal thickness without atrial level shunting by limited color doppler interrogation. AORTA The aortic root and proximal ascending aorta are normal in size on limited imaging. MITRAL VALVE Structurally normal mitral valve. No mitral valve regurgitation. No mitral valve stenosis. AORTIC VALVE The aortic valve is not well visualized. No aortic valve regurgitation. No aortic valve stenosis. TRICUSPID VALVE The tricuspid valve is not well visualized. There is trace tricuspid valve regurgitation. Pulmonary arterial systolic pressure could not be estimated due to an insufficient tricuspid valve regurgitation doppler jet for measurement. PULMONARY VALVE No pulmonary valve regurgitation or stenosis. VESSELS The inferior vena cava is normal in size. PERICARDIUM No pericardial effusion. Ever Lorenz MD, FACC (Electronically Signed) Final Date:14 December 2016 13:26
--- NOTE | 2016-12-14 16:26 | MB ---
cc: JOE FONSECA DATE OF CONSULTATION: 12/14/[address] Srinivasan. REASON FOR CONSULTATION Shortness of breath and hypoxia. HISTORY OF PRESENT ILLNESS Estelita Cruz is a 26-year-old morbidly obese female with history of bronchial asthma, congestive heart failure after a child . The patient was recently discharged from this hospital. She was complaining of shortness of breath for the last few days and shortness of breath was getting worse to the extent that she could not take a breath and was using nebulizer treatment and inhaler up to 10 times a day. She was feeling tightness in the chest, had dry cough, not able to bring up any phlegm. No fever or chills. Because of worsening of shortness of breath, she came to the hospital. She had a CTA of the chest and does not show any pulmonary embolus, shows diffuse ground-glass densities throughout both lungs alveolitis or hypersensitivity pneumonia. Her WBC count is 18.9, hemoglobin 9.8, hematocrit 32.8, MCV 69, platelet count 384, sodium 139, potassium 3.8, chloride 100, CO2 28, BUN 11, creatinine 0.87, troponin 0.34 and BNP is 425. Blood gas on 3 liters nasal cannula pH 7.41, pCO2 51, pO2 29.3_ on nasal cannula, maintaining good oxygen saturation. PAST MEDICAL HISTORY Her past medical history is significant for: 1. Congestive heart failure. 2. Hypertension. 3. Asthma. 4. History of . MEDICATIONS She is currently takin. Solu-Medrol 60 mg q. 6 hours. 2. Albuterol/ipratropium nebulizer treatment. 3. Lovenox 40 mg a day. ALLERGIES NO KNOWN DRUG ALLERGIES. SOCIAL HISTORY She is single, works at a [employer]. No history of smoking, alcohol abuse. FAMILY HISTORY She has one child. She lives alone. REVIEW OF SYSTEMS She is moderately obese with weight 150 kilos with BMI of 60, walks good distance. 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 She has no pets. No recent travel. PHYSICAL EXAMINATION GENERAL: Morbidly obese female, mild shortness of breath, not in acute distress. VITAL SIGNS: Blood pressure 136/67, heart rate 90, respirations 20, temperature 99.6. HEENT: Pupils are equal and reactive to light, oral mucosa, nasal mucosa normal. NECK: Supple. JVP not raised. CHEST: Equal air entry. She has expiratory rhonchi. CVS: S1, S2 normal. ABDOMEN: Benign. EXTREMITIES: No edema. IMPRESSION 1. Shortness of breath with hypoxia. No pulmonary embolism. 2. Bilateral diffuse ground-glass infiltrate, possible hypersensitivity pneumonia or alveolitis. 3. History of congestive heart failure. 4. Obesity hypoventilation syndrome, possible underlying sleep apnea. PLAN I discussed with the patient, echocardiogram shows good ejection fraction, pulmonary pressure could not be assessed because of the poor quality. Will give her IV Solu-Medrol, aerosol treatments, subcu Lovenox, also check her RF, MAURICIO and sed rate. Will wean her oxygen as she tolerates and she may need home oxygen at least briefly. She will also need sleep study as an outpatient. Further treatment will depend on the course in the hospital. Thank you Dr. Srinivasan for this consult. Joe Fonseca MD ADA/TLL /3:11 PM /3:48 PM AILYN
[2016-12-14] MEDS: methylPREDNISolone SOD SUCC 125 MG/2 ML VIAL IV PUSH SCH ×2 (16:39→21:43)
--- NOTE | 2016-12-14 18:07 | EKG ---
Date Performed: 12/14/2016 Time Performed: 08:49:35 PTAGE: 26 years EKG: Sinus rhythm POSSIBLE LEFT ATRIAL ENLARGEMENT MODERATE T-WAVE ABNORMALITY, CONSIDER LATERAL ISCHEMIA MODERATE T-W AVE ABNORMALITY, CONSIDER INFERIOR ISCHEMIA ABNORMAL ECG Compared to the PREVIOUS TRACING ischemic changes above are new, clinical correlation requried PREVIOUS TRACIN11/22/2016 22.45 DOCTOR: Vikash Yoder Interpretating Date/Time 12/14/2016 18:04:47
[2016-12-14] MEDS: SODIUM CHLORIDE 0.9% FLUSH 10 ML FLUSH IV FLUSH SCH (21:44)
[2016-12-14 22:21] LABS: RHEUMATOID FACTOR TRIGGER LESS THAN 10.0 IU/ML (0.0-14.9)
[2016-12-15] VITALS (8 sets, daily range): BP systolic 123–158; BP diastolic 57–74; PULSE 61–98; RESP 16–21; TEMP 97.5–98.6; O2SAT 93–100
[2016-12-15] MEDS: methylPREDNISolone SOD SUCC 125 MG/2 ML VIAL IV PUSH SCH ×2 (04:42→10:00)
[2016-12-15 05:21] LABS: BICARBONATE 26.8 MEQ/L (21.0-32.0)
[2016-12-15] MEDS: RESP: ALBUTEROL 2.5 MG/IPRATROPIUM 0.5 MG NEB (SCH) NEB ×3 (08:00→20:46)
[2016-12-15] MEDS: SODIUM CHLORIDE 0.9% FLUSH 10 ML FLUSH IV FLUSH SCH ×2 (09:00→20:03)
--- NOTE | 2016-12-15 10:56 | HHI.PR ---
Subjective Remarks Pt reports that she slept much better last night with with CPAP and felt much less fatigue today She is still requiring 3L supplemental O2 Pt states that she felt light headed today while off oxygen when she got up to go shower today Objective Vitals Vital Signs Date Time Temp Pulse Resp B/P (MAP) Pulse Ox O2 Delivery O2 Flow Rate FiO2 12/15/16 08:08 98.0 61 20 144/62 (89) 98 12/15/16 04:00 97.6 70 18 158/74 (102) 100 12/15/16 00:00 97.5 84 18 144/66 (92) 95 12/14/16 22:56 96 45 12/14/16 20:30 Nasal Cannula 3.00 12/14/16 20:00 97.1 73 20 150/79 (102) 95 12/14/16 20:00 93 Nasal Cannula 4.00 12/14/16 16:08 98.4 88 18 166/77 (106) 93 12/14/16 12:30 94 Nasal Cannula 3.00 12/14/16 11:30 90 20 136/67 (90) 96 Nasal Cannula 3.00 Result Diagram: 12/14/16 0810 12/15/16 0356 Other Results Laboratory Tests Test 12/14/16 08:10 12/14/16 08:27 12/14/16 18:15 12/15/16 03:56 White Blood Count 18.9 TH/MM3 Red Blood Count 4.74 MIL/MM3 Hemoglobin 9.8 GM/DL Hematocrit 32.8 % Mean Corpuscular Volume 69.2 FL Mean Corpuscular Hemoglobin 20.7 PG Mean Corpuscular Hemoglobin Concent 29.9 % Red Cell Distribution Width 20.1 % Platelet Count 384 TH/MM3 Mean Platelet Volume 7.3 FL Neutrophils (%) (Auto) 78.2 % Lymphocytes (%) (Auto) 16.4 % Monocytes (%) (Auto) 4.4 % Eosinophils (%) (Auto) 0.7 % Basophils (%) (Auto) 0.3 % Neutrophils # (Auto) 14.8 TH/MM3 Lymphocytes # (Auto) 3.1 TH/MM3 Monocytes # (Auto) 0.8 TH/MM3 Eosinophils # (Auto) 0.1 TH/MM3 Basophils # (Auto) 0.1 TH/MM3 CBC Comment DIFF FINAL Differential Comment Prothrombin Time 11.0 SEC Prothromb Time International Ratio 1.0 RATIO Activated Partial Thromboplast Time 25.9 SEC Blood Urea Nitrogen 11 MG/DL 11 MG/DL Creatinine 0.87 MG/DL 0.77 MG/DL Random Glucose 144 MG/DL 151 MG/DL Total Protein 6.8 GM/DL Albumin 3.0 GM/DL Calcium Level 8.4 MG/DL 8.7 MG/DL Magnesium Level 1.7 MG/DL Alkaline Phosphatase 61 U/L Aspartate Amino Transf (AST/SGOT) 29 U/L Alanine Aminotransferase (ALT/SGPT) 29 U/L Total Bilirubin 1.3 MG/DL Sodium Level 139 MEQ/L 132 MEQ/L Potassium Level 3.8 MEQ/L 6.0 MEQ/L Chloride Level 100 MEQ/L 99 MEQ/L Carbon Dioxide Level 28.1 MEQ/L 26.8 MEQ/L Anion Gap 11 MEQ/L 6 MEQ/L Estimat Glomerular Filtration Rate 94 ML/MIN 108 ML/MIN Total Creatine Kinase 446 U/L 83 U/L Creatine Kinase MB 13.1 NG/ML Creatine Kinase MB % 2.9 % Troponin I 0.34 NG/ML 0.25 NG/ML B-Type Natriuretic Peptide 425 PG/ML Blood Gas Puncture Site RT RADIAL Blood Gas Patient Temperature 98.6 Blood Gas HCO3 31 mmol/L Blood Gas Base Excess 6.7 mmol/L Blood Gas Oxygen Saturation 42 % Arterial Blood pH 7.41 Arterial Blood Partial Pressure CO2 51 mmHg Arterial Blood Partial Pressure O2 29 mmHG Arterial Blood Oxygen Content 5.8 Vol % Arterial Blood Carboxyhemoglobin 1.9 % Arterial Blood Methemoglobin 0.6 % Blood Gas Hemoglobin 9.7 G/DL Oxygen Delivery Device NASAL CANNULA Blood Gas Liter Flow 3 L/M Erythrocyte Sedimentation Rate 25 mm/hr Rheumatoid Factor Screen NEGATIVE Rheumatoid Factor Titer IU/ML Triglycerides Level 102 MG/DL Cholesterol Level 203 MG/DL LDL Cholesterol 123 MG/DL HDL Cholesterol 60.0 MG/DL Cholesterol/HDL Ratio 3.38 RATIO Imaging Last Impressions Chest X-Ray 12/14/16 0746 Signed Impressions: Service Date/Time: Wednesday, December 14, 2016 08:44 - CONCLUSION: 1. Persistent left lower lobe airspace consolidation. This is suboptimally evaluated due to patient's body habitus on single portable view. Consider formal PA and lateral views of the chest for better evaluation. Josiah Victoria MD CT Angiography 12/14/16 0746 Signed Impressions: Service Date/Time: Wednesday, December 14, 2016 09:24 - CONCLUSION: 1. Diffuse groundglass density throughout both lungs. Diagnostic considerations include vascular congestion or possibly a hypersensitivity pneumonitis. 2. Cardiomegaly. 3. No PE. Jevon De Luna MD Objective Remarks General: NAD, AAOx3 Chest: CTA Cardiac: Regular Abd: +BS, obese, soft ND/NT Ext: No edema A/P Problem List: (1) Hypoxia ICD Codes: R09.02 - Hypoxemia Status: Acute Plan: - Pt is a 26 y/o obese AAF with asthma, hypertension and CHF after childbirth 2 years ago. - Pt was recently admitted [place] [facility] [place]23[place]24 for respiratory acidosis and hypercapnia with asthma exacerbation and possible early pneumonia. She required BiPAP during that admission but once she was off the BiPAP she insisted on discharge and left without a nebulizer. Pt reported has been using the Ventolin inhaler and Albuterol nebulizer as needed. - She presented back to the ED at [facility] [place] on 12/14/16 with complaints of SOB, some slight wheezing, dry nonproductive cough, shortness of breath, and chest tightness x 2 days. She also complains swelling in the left leg x 3 days. She has problems with daytime fatigue and snoring during the night. She had no relief with albuterol inhaler used approximately 7 times this morning. - In the ED she had an ABG done which noted pH of 7.41, PCO2 of 51, PO2 of 29, base excess of 6.7, bicarbonate 31. - CXR (12/14) --> persistent left lower lobe airspace consolidation but this is suboptimally evaluated due to patient's body habitus on single portable view. - CTA (12/14) --> was negative for PE but noted diffuse ground-glass density throughout both lungs, diagnostic considerations include vascular congestion or possibly a hypersensitivity pneumonitis, and cardiomegaly. - Her troponin was mildly elevated at 0.34 and her BNP is 425 as well. - Repeat Troponin 0.25, will get a third set this morning - 2D echo (12/14) --> technically very difficulty study, LV not well visualized , estimated EF 50-55%, normal LV size, tricuspid valve not well visualized, trace TV regurg, PA pressure could not be estimated - Telemetry - CPAP at night, wean down O2 - Appreciate pulmonary medicine consultation - Pt likely with obesity hypoventilation syndrome/undiagnosed TUAN as she has not has outpt sleep study. She will need sleep study as an outpt - Pt also inquiring about gastric bypass, pt was instructed to followup with her PCP for referral for this as an outpt - RF negative, ASA is pending, ESR slightly elevated at 25 - Cont. schedule duonebs - Solu-Medrol to be changed to po Prednisone today - Supportive care - DVT prophylaxis (2) Sleep apnea ICD Codes: G47.30 - Sleep apnea, unspecified Plan: - Pt has not formally undergone sleep study but most likely has TUAN given her body habitus and reported snoring and daytime fatigue - CPAP (3) Asthma exacerbation ICD Codes: J45.901 - Unspecified asthma with (acute) exacerbation Status: Acute Plan: - Its not clear that the pt is having just an asthma exacerbation given findings on imaging - Give Solu-Medrol and Duonebs - Monitor clinical status (4) HTN (hypertension) ICD Codes: I10 - Essential (primary) hypertension Status: Chronic Plan: - Home meds continued (5) Morbid obesity with BMI of 50.0-59.9, adult ICD Codes: E66.01 - Morbid (severe) obesity due to excess calories; Z68.43 - Body mass index (BMI) 50-59.9 , adult Status: Chronic (6) Hyperlipidemia ICD Codes: E78.5 - Hyperlipidemia, unspecified Plan: - Start statin Assessment and Plan Patient examined. Assessment and plan formulated with Kristen Casiano PA-C. I agree with the above. Kristen Casiano Dec 15, 2016 10:56 Eliud Srinivasan DO Dec 16, 2016 20:15
[2016-12-15] MEDS: ENOXAPARIN SODIUM 40 MG/0.4 ML SYRINGE SQ SCH (11:27)
[2016-12-15 12:50] LABS: AUTOMATED NEUTROPHIL # 16.4 TH/MM3 (1.8-7.7); BASOPHIL % 0.1 % (0.0-2.0); HEMATOCRIT 32.7 % (35.0-46.0); HEMO FLAGS DIFF FINAL; LYMPH % 5.3 % (9.0-44.0); LYMPHOCYTE # 0.9 TH/MM3 (1.0-4.8); MEAN CORPUSCULAR HEMOGLOBIN 20.6 PG (27.0-34.0); NEUT % 91.6 % (16.0-70.0); PLATELET COUNT 409 TH/MM3 (150-450); RED BLOOD COUNT 4.61 MIL/MM3 (4.00-5.30); RED CELL DISTRIBUTION WIDTH 20.4 % (11.6-17.2); WHITE BLOOD COUNT 17.9 TH/MM3 (4.0-11.0)
[2016-12-15 12:51] LABS: MEAN CORPUSCULAR HGB CONC 29.1 % (32.0-36.0)
[2016-12-15 13:30] LABS: BICARBONATE 31.3 MEQ/L (21.0-32.0)
[2016-12-15 14:12] LABS: MAGNESIUM 2.3 MG/DL (1.5-2.5)
--- NOTE | 2016-12-15 19:26 | HHI.PR ---
Subjective Remarks YADIEL georges with Morbid obesity, Bilat infilt Breathing better On NC Ambulates in the room Objective Vital Signs Vital Signs Date Time Temp Pulse Resp B/P (MAP) Pulse Ox O2 Delivery O2 Flow Rate FiO2 12/15/16 16:09 98.0 85 20 123/66 (85) 93 12/15/16 14:09 3.00 12/15/16 12:31 93 Nasal Cannula 3.00 12/15/16 12:06 98.6 98 21 137/61 (86) 95 12/15/16 08:08 98.0 61 20 144/62 (89) 98 12/15/16 07:15 93 Nasal Cannula 3.00 12/15/16 04:00 97.6 70 18 158/74 (102) 100 12/15/16 00:00 97.5 84 18 144/66 (92) 95 12/14/16 22:56 96 45 12/14/16 20:30 Nasal Cannula 3.00 12/14/16 20:00 97.1 73 20 150/79 (102) 95 12/14/16 20:00 93 Nasal Cannula 4.00 I/O 12/14/16 12/14/16 12/14/16 12/15/16 12/15/16 12/15/16 07:00 15:00 23:00 07:00 15:00 23:00 Intake Total 240 ml 600 ml 720 ml Output Total 300 ml 300 ml Balance -60 ml 300 ml 720 ml Intake Oral 240 ml 600 ml 720 ml Output Urine Total 300 ml 300 ml # Voids 1 3 # Bowel Movements 0 0 Result Diagram: 12/15/16 1157 12/15/16 1157 Objective Remarks GENERAL: Morbidly obese female, mild sob SKIN: Warm and dry. HEAD: Normocephalic. EYES: No scleral icterus. No injection or drainage. NECK: Supple, trachea midline. No JVD or lymphadenopathy. CARDIOVASCULAR: Regular rate and rhythm without murmurs, gallops, or rubs. RESPIRATORY: Breath sounds equal bilaterally. No accessory muscle use. GASTROINTESTINAL: Abdomen soft, non-tender, nondistended. MUSCULOSKELETAL: No cyanosis, or edema. BACK: Nontender without obvious deformity. No CVA tenderness. A/P Assessment and Plan Dysnoea Hypoxia, no PE Bilat infilt, Alveolitis or Hypersensivity pn Morbid obesity TUAN vs Obesity hypoventilation synd PLAN: PO Steroids PFT Consider Gastric Bypass Will need sleep study as out pt Supplement 02 Joe Abdul MD Dec 15, 2016 19:26
[2016-12-15] MEDS: predniSONE 10 MG TAB PO SCH (20:03)
[2016-12-16] VITALS (7 sets, daily range): BP systolic 140–156; BP diastolic 65–81; PULSE 67–88; RESP 16–21; TEMP 97.2–98.3; O2SAT 93–100
[2016-12-16] MEDS: RESP: ALBUTEROL 2.5 MG/IPRATROPIUM 0.5 MG NEB (SCH) NEB ×2 (08:09→12:21)
[2016-12-16 08:25] LABS: AUTOMATED NEUTROPHIL # 17.7 TH/MM3 (1.8-7.7); BASOPHIL % 0.2 % (0.0-2.0); EOSINOPHIL % 0.1 % (0.0-4.0); HEMATOCRIT 31.4 % (35.0-46.0); HEMO FLAGS DIFF FINAL; LYMPH % 5.4 % (9.0-44.0); LYMPHOCYTE # 1.1 TH/MM3 (1.0-4.8); MEAN CELL VOLUME 71.3 FL (80.0-100.0); MEAN CORPUSCULAR HEMOGLOBIN 20.9 PG (27.0-34.0); MONO % 4.7 % (0.0-8.0); NEUT % 89.6 % (16.0-70.0); PLATELET COUNT 356 TH/MM3 (150-450); RED BLOOD COUNT 4.41 MIL/MM3 (4.00-5.30); RED CELL DISTRIBUTION WIDTH 20.2 % (11.6-17.2); WHITE BLOOD COUNT 19.8 TH/MM3 (4.0-11.0)
[2016-12-16 08:42] LABS: MEAN CORPUSCULAR HGB CONC 29.3 % (32.0-36.0)
[2016-12-16 08:44] LABS: BICARBONATE 33.3 MEQ/L (21.0-32.0); POTASSIUM 4.6 MEQ/L (3.5-5.1)
[2016-12-16] MEDS ORDERED: ATORVASTATIN 10 MG TAB PO SCH (09:00)
[2016-12-16] MEDS: SODIUM CHLORIDE 0.9% FLUSH 10 ML FLUSH IV FLUSH SCH (09:00)
[2016-12-16] MEDS: predniSONE 10 MG TAB PO SCH (10:07)
[2016-12-16] MEDS: ENOXAPARIN SODIUM 40 MG/0.4 ML SYRINGE SQ SCH (12:00)
--- NOTE | 2016-12-16 16:23 | HHI.FF ---
Face to Face Verification Diagnosis: (1) BMI 50.0-59.9, adult (2) HTN (hypertension) (3) Hyperlipidemia (4) Hypoxia Home Health Nursing Order: Medical education Signs/symptoms of disease process Oxygen administration education Nursing assessment with vital signs I have seen patient Estelita Cruz on 12/16/16. My clinical findings support the need for the requested home health care services because: Ltd ability to care for self Limited ability to care for self I certify that my clinical findings support that this patient is homebound because: Unable to use public transportation Unable to use public transportation Carola Paris Dec 16, 2016 16:22 Eliud Srinivasan DO Dec 16, 2016 20:39
[2016-12-16] MEDS ORDERED: PRED10 PO (16:29)
[2016-12-16] MEDS ORDERED: LIPI10TA PO (16:29)
[2016-12-16] MEDS ORDERED: IPRASOL NEB (16:29)
[2016-12-16] MEDS ORDERED: OXYGENDME NAS.CANULA (16:36)
[2016-12-16] MEDS ORDERED: OXYGENTANK NAS.CANULA (16:36)
--- NOTE | 2016-12-16 16:39 | HHI.DS ---
Discharge Summary Admission Date Dec 14, 2016 at 11:01 Discharge Date: Dec 16, 2016 Admitting Diagnosis CHF, dyspnea, elevated troponin (1) Hypoxia Diagnosis: Principal ICD Codes: R09.02 - Hypoxemia Status: Acute (2) Sleep apnea Diagnosis: Principal ICD Codes: G47.30 - Sleep apnea, unspecified (3) HTN (hypertension) Diagnosis: Secondary ICD Codes: I10 - Essential (primary) hypertension Status: Chronic (4) Morbid obesity with BMI of 50.0-59.9, adult Diagnosis: Principal ICD Codes: E66.01 - Morbid (severe) obesity due to excess calories; Z68.43 - Body mass index (BMI) 50-59.9 , adult Status: Chronic (5) Hyperlipidemia Diagnosis: Secondary ICD Codes: E78.5 - Hyperlipidemia, unspecified (6) Hypersensitivity Diagnosis: Principal ICD Codes: T78.40XA - Allergy, unspecified, initial encounter Consultants Dr. Abdul Procedures none Brief History Mrs. Cruz is a 26 y/o obese AAF with asthma, hypertension and CHF after childbirth 2 years ago. Pt was recently admitted to [facility] [place] [place] from 11/23-11/24 for respiratory acidosis and hypercapnia with asthma exacerbation and possible early pneumonia. She required BiPAP all day and overnight during that admission but once she was off the BiPAP she insisted on discharge and left without a nebulizer. Pt reported has been using the Ventolin inhaler and Albuterol nebulizer as needed. She presented back to the ED at [facility] [place] [place] on 12/14/16 with complaints of SOB x 2 days and some slight wheezing. The patient does note a dry mostly nonproductive cough, shortness of breath, and chest tightness. She also complains swelling in the left leg x 3 days. She has problems with daytime fatigue and snoring during the day. Yesterday she used her albuterol inhaler approximately 7 times with minimal relief of her symptoms. In the ED she had an ABG done which noted pH of 7.41, PCO2 of 51, PO2 of 29, base excess of 6.7, bicarbonate 31. CXR in the ED noted persistent left lower lobe airspace consolidation but this is suboptimally evaluated due to patient's body habitus on single portable view. CTA was negative for PE but noted diffuse ground-glass density throughout both lungs, diagnostic considerations include vascular congestion or possibly a hypersensitivity pneumonitis, and cardiomegaly. The patient denies any fever, nausea, vomiting, or abdominal pain. The last menstrual cycle was at the end of October. 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 CBC/BMP: 12/16/16 0535 12/16/16 0535 Significant Findings Laboratory Tests Test 12/14/16 08:10 12/14/16 08:27 12/14/16 18:15 12/15/16 03:56 White Blood Count 18.9 TH/MM3 (4.0-11.0) Hemoglobin 9.8 GM/DL (11.6-15.3) Hematocrit 32.8 % (35.0-46.0) Mean Corpuscular Volume 69.2 FL (80.0-100.0) Mean Corpuscular Hemoglobin 20.7 PG (27.0-34.0) Mean Corpuscular Hemoglobin Concent 29.9 % (32.0-36.0) Red Cell Distribution Width 20.1 % (11.6-17.2) Neutrophils (%) (Auto) 78.2 % (16.0-70.0) Neutrophils # (Auto) 14.8 TH/MM3 (1.8-7.7) Random Glucose 144 MG/DL (74-106) 151 MG/DL (74-106) Albumin 3.0 GM/DL (3.4-5.0) Calcium Level 8.4 MG/DL (8.5-10.1) Total Bilirubin 1.3 MG/DL (0.2-1.0) Total Creatine Kinase 446 U/L (26-192) Creatine Kinase MB 13.1 NG/ML (0.5-3.6) Troponin I 0.34 NG/ML (0.02-0.05) 0.25 NG/ML (0.02-0.05) 0.12 NG/ML (0.02-0.05) B-Type Natriuretic Peptide 425 PG/ML (0-100) Blood Gas HCO3 31 mmol/L (22-26) Blood Gas Base Excess 6.7 mmol/L (-2-2) Blood Gas Oxygen Saturation 42 % (90-100) Arterial Blood Partial Pressure CO2 51 mmHg (38-42) Arterial Blood Partial Pressure O2 29 mmHG (61-120) Arterial Blood Oxygen Content 5.8 Vol % (12.0-20.0) Blood Gas Hemoglobin 9.7 G/DL (12.0-16.0) Erythrocyte Sedimentation Rate 25 mm/hr (0-20) Sodium Level 132 MEQ/L (136-145) Potassium Level 6.0 MEQ/L (3.5-5.1) Cholesterol Level 203 MG/DL (120-200) LDL Cholesterol 123 MG/DL (0-99) Test 12/15/16 11:57 12/16/16 05:35 White Blood Count 17.9 TH/MM3 (4.0-11.0) 19.8 TH/MM3 (4.0-11.0) Hemoglobin 9.5 GM/DL (11.6-15.3) 9.2 GM/DL (11.6-15.3) Hematocrit 32.7 % (35.0-46.0) 31.4 % (35.0-46.0) Mean Corpuscular Volume 71.0 FL (80.0-100.0) 71.3 FL (80.0-100.0) Mean Corpuscular Hemoglobin 20.6 PG (27.0-34.0) 20.9 PG (27.0-34.0) Mean Corpuscular Hemoglobin Concent 29.1 % (32.0-36.0) 29.3 % (32.0-36.0) Red Cell Distribution Width 20.4 % (11.6-17.2) 20.2 % (11.6-17.2) Neutrophils (%) (Auto) 91.6 % (16.0-70.0) 89.6 % (16.0-70.0) Lymphocytes (%) (Auto) 5.3 % (9.0-44.0) 5.4 % (9.0-44.0) Neutrophils # (Auto) 16.4 TH/MM3 (1.8-7.7) 17.7 TH/MM3 (1.8-7.7) Lymphocytes # (Auto) 0.9 TH/MM3 (1.0-4.8) Random Glucose 185 MG/DL (74-106) 153 MG/DL (74-106) Troponin I 0.13 NG/ML (0.02-0.05) Carbon Dioxide Level 33.3 MEQ/L (21.0-32.0) Imaging Last Impressions Chest X-Ray 12/14/16745 Signed Impressions: Service Date/Time: Wednesday, December 14, 2016 08:44 - CONCLUSION: 1. Persistent left lower lobe airspace consolidation. This is suboptimally evaluated due to patient's body habitus on single portable view. Consider formal PA and lateral views of the chest for better evaluation. Josiah Victoria MD CT Angiography 12/14/1603 Signed Impressions: Service Date/Time: Wednesday, December 14, 2016 09:24 - CONCLUSION: 1. Diffuse groundglass density throughout both lungs. Diagnostic considerations include vascular congestion or possibly a hypersensitivity pneumonitis. 2. Cardiomegaly. 3. No PE. Jevon De Luna MD PE at Discharge General: NAD, AAOx3 Chest: CTA Cardiac: Regular Abd: +BS, obese, soft ND/NT Ext: No edema Hospital Course Hypoxia - Pt is a 26 y/o obese AAF with asthma, hypertension and CHF after childbirth 2 years ago. - Pt was recently admitted to [facility] [place] [place] from 11/23-11/24 for respiratory acidosis and hypercapnia with asthma exacerbation and possible early pneumonia. She required BiPAP during that admission but once she was off the BiPAP she insisted on discharge and left without a nebulizer. Pt reported has been using the Ventolin inhaler and Albuterol nebulizer as needed. - She presented back to the ED at [facility] [place] [place] on 12/14/16 with complaints of SOB, some slight wheezing, dry nonproductive cough, shortness of breath, and chest tightness x 2 days. She also complains swelling in the left leg x 3 days. She has problems with daytime fatigue and snoring during the night. She had no relief with albuterol inhaler used approximately 7 times this morning. - In the ED she had an ABG done which noted pH of 7.41, PCO2 of 51, PO2 of 29, base excess of 6.7, bicarbonate 31. - CXR (12/14) --> persistent left lower lobe airspace consolidation but this is suboptimally evaluated due to patient's body habitus on single portable view. - CTA (12/14) --> was negative for PE but noted diffuse ground-glass density throughout both lungs, diagnostic considerations include vascular congestion or possibly a hypersensitivity pneumonitis, and cardiomegaly. - Her troponin was mildly elevated at 0.34 and her BNP is 425 as well. - Repeat Troponin 0.25, will get a third set this morning - 2D echo (12/14) --> technically very difficulty study, LV not well visualized , estimated EF 50-55%, normal LV size, tricuspid valve not well visualized, trace TV regurg, PA pressure could not be estimated - Telemetry - CPAP at night, wean down O2 - Appreciate pulmonary medicine consultation - Pt likely with obesity hypoventilation syndrome/undiagnosed TUAN as she has not has outpt sleep study. She will need sleep study as an outpt - Pt also inquiring about gastric bypass, pt was instructed to followup with her PCP for referral for this as an outpt - RF negative, ASA is pending, ESR slightly elevated at 25 - Cont. schedule duonebs - Solu-Medrol to be changed to po Prednisone plan to taper as outpatient - Supportive care - patient works locally at a [employer]- Discussed with patient that her recurrent respiratory symptoms may be from her environmental exposure. 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 Patient must wear a mask while at work. Patient verbalizes understanding - DVT prophylaxis Sleep apnea - Pt has not formally undergone sleep study but most likely has TUAN given her body habitus and reported snoring and daytime fatigue - CPAP while in hospital - patient would benefit from and outpatient sleep evaluation Asthma exacerbation - Its not clear that the pt is having just an asthma exacerbation given findings on imaging - Give Solu-Medrol and Duonebs - Monitor clinical status HTN (hypertension) - Home meds continued Morbid obesity with BMI of 50.0-59.9, adult - Chronic - see above Hyperlipidemia - Start statin Pt Condition on Discharge: Stable Discharge Disposition: Disch w/ Home Health Serv Discharge Instructions DIET: Follow Instructions for: Weight Management Activities you can perform: Regular-No Restrictions Follow up Referrals: PCP Follow-up - [address] Suraj Dent Pulmonology - 1 Week with Joe Abdul MD New Medications: Oxygen (O2) (Oxygen (O2)) Device LITER SUZY.CANULA CONTINUOUS for Prevent Hypoxemia, #3 0 Refills Oxygen Concentrator Portable Gaseous 3 L/min via Nasal Canula Continuous For 1 month Oxygen tank (Oxygen tank) 1 Ea Tank LITER SUZY.CANULA CONTINUOUS for HYPOXEMIA PREVENTION, #3 Oxygen Concentrator Portable Gaseous 3 L/min via Nasal Cannula Continuous For 1 month Prednisone (Prednisone) 10 Mg Tab 10 MG PO DIRECTED for steroid taper, #53 TAB 0 Refills take 30 mg twice a day for 3 days then take 20 mg twice a day for 5 days then take 10 mg twice a day for 5 day then take 10 mg once a day for 5 days Atorvastatin (Lipitor) 10 Mg Tab 10 MG PO DAILY for cholesterol, #30 TAB 0 Refills Ipratropium-Albuterol Neb (Duoneb) 0.5-2.5 Mg/3 Ml Neb 1 AMPULE NEB QID NEB PRN for SOB/WHEEZING for 30 Days, #100 ML 0 Refills Continued Medications: Albuterol 18 GM Inh (Ventolin Hfa 18 GM Inh) 90 Mcg/Act Aer 2 PUFF INH Q4H PRN for SHORTNESS OF BREATH, #1 INHALER 0 Refills Albuterol Neb (Albuterol Neb) 2.5 Mg/3 Ml Neb 2.5 MG NEB QID NEB for Breathing Treatment, #60 NEBULE 0 Refills Nifedipine ER 24 HR (Nifedipine ER 24 HR) 30 Mg Tab 30 MG PO BID for blood pressure, #60 TAB Additional Information Patient examined. Assessment and plan formulated with Carola Paris PA-C. I agree with the above. 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 Discharge pt on PO prednisone and home oxygen. pt will need outpt f/u with PCP, Dr. Abdul, and Sleep Medicine. I am concerned that pt is having an environmental exposure leading to hypersensitivity alveolitis. I did okay pt returning to work next Wednesday, December 21. 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 I explained the above to Ms. Cruz. Carola Paris Dec 16, 2016 16:38 Eliud Srinivasan DO Dec 16, 2016 20:34
--- NOTE | 2016-12-16 16:40 | HHI.PR ---
Subjective Remarks Patient reports feeling better today still requiring supplemental oxygen Objective Vitals Vital Signs Date Time Temp Pulse Resp B/P (MAP) Pulse Ox O2 Delivery O2 Flow Rate FiO2 12/16/16 16:00 98.3 81 19 154/67 (96) 96 12/16/16 12:00 98.1 82 20 151/70 (97) 96 12/16/16 08:09 97 45 12/16/16 08:00 97.2 67 21 156/81 (106) 93 12/16/16 07:15 Bi-Pap 12/16/16 04:00 97.6 69 16 140/65 (90) 100 12/16/16 02:28 100 BiPAP 12/16/16 00:00 97.4 88 16 151/67 (95) 96 12/15/16 20:48 94 Nasal Cannula 3.00 12/15/16 20:00 98.4 87 16 129/57 (81) 96 12/15/16 19:45 Nasal Cannula 2.00 Result Diagram: 12/16/16 0535 12/16/16 0535 Other Results Laboratory Tests Test 12/14/16 08:10 12/14/16 08:27 12/14/16 18:15 12/15/16 03:56 White Blood Count 18.9 TH/MM3 Red Blood Count 4.74 MIL/MM3 Hemoglobin 9.8 GM/DL Hematocrit 32.8 % Mean Corpuscular Volume 69.2 FL Mean Corpuscular Hemoglobin 20.7 PG Mean Corpuscular Hemoglobin Concent 29.9 % Red Cell Distribution Width 20.1 % Platelet Count 384 TH/MM3 Mean Platelet Volume 7.3 FL Neutrophils (%) (Auto) 78.2 % Lymphocytes (%) (Auto) 16.4 % Monocytes (%) (Auto) 4.4 % Eosinophils (%) (Auto) 0.7 % Basophils (%) (Auto) 0.3 % Neutrophils # (Auto) 14.8 TH/MM3 Lymphocytes # (Auto) 3.1 TH/MM3 Monocytes # (Auto) 0.8 TH/MM3 Eosinophils # (Auto) 0.1 TH/MM3 Basophils # (Auto) 0.1 TH/MM3 CBC Comment DIFF FINAL Differential Comment Prothrombin Time 11.0 SEC Prothromb Time International Ratio 1.0 RATIO Activated Partial Thromboplast Time 25.9 SEC Blood Urea Nitrogen 11 MG/DL 11 MG/DL Creatinine 0.87 MG/DL 0.77 MG/DL Random Glucose 144 MG/DL 151 MG/DL Total Protein 6.8 GM/DL Albumin 3.0 GM/DL Calcium Level 8.4 MG/DL 8.7 MG/DL Magnesium Level 1.7 MG/DL 2.3 MG/DL Alkaline Phosphatase 61 U/L Aspartate Amino Transf (AST/SGOT) 29 U/L Alanine Aminotransferase (ALT/SGPT) 29 U/L Total Bilirubin 1.3 MG/DL Sodium Level 139 MEQ/L 132 MEQ/L Potassium Level 3.8 MEQ/L 6.0 MEQ/L Chloride Level 100 MEQ/L 99 MEQ/L Carbon Dioxide Level 28.1 MEQ/L 26.8 MEQ/L Anion Gap 11 MEQ/L 6 MEQ/L Estimat Glomerular Filtration Rate 94 ML/MIN 108 ML/MIN Total Creatine Kinase 446 U/L 83 U/L 78 U/L Creatine Kinase MB 13.1 NG/ML Creatine Kinase MB % 2.9 % Troponin I 0.34 NG/ML 0.25 NG/ML 0.12 NG/ML B-Type Natriuretic Peptide 425 PG/ML Blood Gas Puncture Site RT RADIAL Blood Gas Patient Temperature 98.6 Blood Gas HCO3 31 mmol/L Blood Gas Base Excess 6.7 mmol/L Blood Gas Oxygen Saturation 42 % Arterial Blood pH 7.41 Arterial Blood Partial Pressure CO2 51 mmHg Arterial Blood Partial Pressure O2 29 mmHG Arterial Blood Oxygen Content 5.8 Vol % Arterial Blood Carboxyhemoglobin 1.9 % Arterial Blood Methemoglobin 0.6 % Blood Gas Hemoglobin 9.7 G/DL Oxygen Delivery Device NASAL CANNULA Blood Gas Liter Flow 3 L/M Erythrocyte Sedimentation Rate 25 mm/hr Rheumatoid Factor Screen NEGATIVE Rheumatoid Factor Titer IU/ML Triglycerides Level 102 MG/DL Cholesterol Level 203 MG/DL LDL Cholesterol 123 MG/DL HDL Cholesterol 60.0 MG/DL Cholesterol/HDL Ratio 3.38 RATIO Test 12/15/16 11:57 12/16/16 05:35 White Blood Count 17.9 TH/MM3 19.8 TH/MM3 Red Blood Count 4.61 MIL/MM3 4.41 MIL/MM3 Hemoglobin 9.5 GM/DL 9.2 GM/DL Hematocrit 32.7 % 31.4 % Mean Corpuscular Volume 71.0 FL 71.3 FL Mean Corpuscular Hemoglobin 20.6 PG 20.9 PG Mean Corpuscular Hemoglobin Concent 29.1 % 29.3 % Red Cell Distribution Width 20.4 % 20.2 % Platelet Count 409 TH/MM3 356 TH/MM3 Mean Platelet Volume 7.5 FL 7.6 FL Neutrophils (%) (Auto) 91.6 % 89.6 % Lymphocytes (%) (Auto) 5.3 % 5.4 % Monocytes (%) (Auto) 3.0 % 4.7 % Eosinophils (%) (Auto) 0.0 % 0.1 % Basophils (%) (Auto) 0.1 % 0.2 % Neutrophils # (Auto) 16.4 TH/MM3 17.7 TH/MM3 Lymphocytes # (Auto) 0.9 TH/MM3 1.1 TH/MM3 Monocytes # (Auto) 0.5 TH/MM3 0.9 TH/MM3 Eosinophils # (Auto) 0.0 TH/MM3 0.0 TH/MM3 Basophils # (Auto) 0.0 TH/MM3 0.0 TH/MM3 CBC Comment DIFF FINAL DIFF FINAL Differential Comment Blood Urea Nitrogen 10 MG/DL 18 MG/DL Creatinine 0.82 MG/DL 0.80 MG/DL Random Glucose 185 MG/DL 153 MG/DL Calcium Level 9.1 MG/DL 8.7 MG/DL Sodium Level 136 MEQ/L 136 MEQ/L Potassium Level 5.0 MEQ/L 4.6 MEQ/L Chloride Level 98 MEQ/L 98 MEQ/L Carbon Dioxide Level 31.3 MEQ/L 33.3 MEQ/L Anion Gap 7 MEQ/L 5 MEQ/L Estimat Glomerular Filtration Rate 100 ML/MIN 103 ML/MIN Total Creatine Kinase 64 U/L Troponin I 0.13 NG/ML Magnesium Level 2.0 MG/DL Imaging Last Impressions Chest X-Ray 12/14/16745 Signed Impressions: Service Date/Time: Wednesday, December 14, 2016 08:44 - CONCLUSION: 1. Persistent left lower lobe airspace consolidation. This is suboptimally evaluated due to patient's body habitus on single portable view. Consider formal PA and lateral views of the chest for better evaluation. Josiah Victoria MD CT Angiography 12/14/16745 Signed Impressions: Service Date/Time: Wednesday, December 14, 2016 09:24 - CONCLUSION: 1. Diffuse groundglass density throughout both lungs. Diagnostic considerations include vascular congestion or possibly a hypersensitivity pneumonitis. 2. Cardiomegaly. 3. No PE. Jevon De Luna MD Objective Remarks General: NAD, AAOx3 Chest: CTA Cardiac: Regular Abd: +BS, obese, soft ND/NT Ext: No edema Procedures none A/P Problem List: (1) Hypoxia ICD Codes: R09.02 - Hypoxemia Status: Acute Plan: - Pt is a 26 y/o obese AAF with asthma, hypertension and CHF after childbirth 2 years ago. - Pt was recently admitted to [facility] from 11/23-11/24 for respiratory acidosis and hypercapnia with asthma exacerbation and possible early pneumonia. She required BiPAP during that admission but once she was off the BiPAP she insisted on discharge and left without a nebulizer. Pt reported has been using the Ventolin inhaler and Albuterol nebulizer as needed. - She presented back to the ED at [facility] on 12/14/16 with complaints of SOB, some slight wheezing, dry nonproductive cough, shortness of breath, and chest tightness x 2 days. She also complains swelling in the left leg x 3 days. She has problems with daytime fatigue and snoring during the night. She had no relief with albuterol inhaler used approximately 7 times this morning. - In the ED she had an ABG done which noted pH of 7.41, PCO2 of 51, PO2 of 29, base excess of 6.7, bicarbonate 31. - CXR (12/14) --> persistent left lower lobe airspace consolidation but this is suboptimally evaluated due to patient's body habitus on single portable view. - CTA (12/14) --> was negative for PE but noted diffuse ground-glass density throughout both lungs, diagnostic considerations include vascular congestion or possibly a hypersensitivity pneumonitis, and cardiomegaly. - Her troponin was mildly elevated at 0.34 and her BNP is 425 as well. - Repeat Troponin 0.25, will get a third set this morning - 2D echo (12/14) --> technically very difficulty study, LV not well visualized , estimated EF 50-55%, normal LV size, tricuspid valve not well visualized, trace TV regurg, PA pressure could not be estimated - Telemetry - CPAP at night, wean down O2 - Appreciate pulmonary medicine consultation - Pt likely with obesity hypoventilation syndrome/undiagnosed TUAN as she has not has outpt sleep study. She will need sleep study as an outpt - Pt also inquiring about gastric bypass, pt was instructed to followup with her PCP for referral for this as an outpt - RF negative, ASA is pending, ESR slightly elevated at 25 - Cont. schedule duonebs - Solu-Medrol to be changed to po Prednisone then taper as outpatient - Supportive care - DVT prophylaxis (2) Sleep apnea ICD Codes: G47.30 - Sleep apnea, unspecified Plan: - Pt has not formally undergone sleep study but most likely has TUAN given her body habitus and reported snoring and daytime fatigue - CPAP (3) Asthma exacerbation ICD Codes: J45.901 - Unspecified asthma with (acute) exacerbation Status: Acute Plan: - Its not clear that the pt is having just an asthma exacerbation given findings on imaging - Give Solu-Medrol and Duonebs - Monitor clinical status (4) HTN (hypertension) ICD Codes: I10 - Essential (primary) hypertension Status: Chronic Plan: - Home meds continued (5) Morbid obesity with BMI of 50.0-59.9, adult ICD Codes: E66.01 - Morbid (severe) obesity due to excess calories; Z68.43 - Body mass index (BMI) 50-59.9 , adult Status: Chronic (6) Hyperlipidemia ICD Codes: E78.5 - Hyperlipidemia, unspecified Plan: - continue statin Assessment and Plan Patient examined. Assessment and plan formulated with Carola Paris PA-C. I agree with the above. 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 Discharge pt on PO prednisone and home oxygen. pt will need outpt f/u with PCP, Dr. Abdul, and Sleep Medicine. I am concerned that pt is having an environmental exposure leading to hypersensitivity alveolitis. I did okay pt returning to work next Wednesday, December 21. 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 I explained the above to Alma Rosa Anthony. Carola Paris Dec 16, 2016 16:40 Eliud Srinivasan DO Dec 16, 2016 20:23
--- NOTE | 2016-12-16 19:22 | HHI.PR ---
Subjective Remarks YADIEL georges with Morbid obesity, Bilat infilt Breathing better On NC Ambulates in the room Desaturates with ambulation Objective Vital Signs Vital Signs Date Time Temp Pulse Resp B/P (MAP) Pulse Ox O2 Delivery O2 Flow Rate FiO2 12/16/16 16:00 98.3 81 19 154/67 (96) 96 12/16/16 12:00 98.1 82 20 151/70 (97) 96 12/16/16 08:09 97 45 12/16/16 08:00 97.2 67 21 156/81 (106) 93 12/16/16 07:15 Bi-Pap 12/16/16 04:00 97.6 69 16 140/65 (90) 100 12/16/16 02:28 100 BiPAP 12/16/16 00:00 97.4 88 16 151/67 (95) 96 12/15/16 20:48 94 Nasal Cannula 3.00 12/15/16 20:00 98.4 87 16 129/57 (81) 96 12/15/16 19:45 Nasal Cannula 2.00 I/O 12/15/16 12/15/16 12/15/16 12/16/16 12/16/16 12/16/16 07:00 15:00 23:00 07:00 15:00 23:00 Intake Total 600 ml 720 ml Output Total 300 ml Balance 300 ml 720 ml Intake Oral 600 ml 720 ml Output Urine Total 300 ml # Voids 3 2 # Bowel Movements 0 0 Result Diagram: 12/16/16 0535 12/16/16 0535 Objective Remarks GENERAL: Morbidly obese female, mild sob SKIN: Warm and dry. HEAD: Normocephalic. EYES: No scleral icterus. No injection or drainage. NECK: Supple, trachea midline. No JVD or lymphadenopathy. CARDIOVASCULAR: Regular rate and rhythm without murmurs, gallops, or rubs. RESPIRATORY: Breath sounds equal bilaterally. No accessory muscle use. GASTROINTESTINAL: Abdomen soft, non-tender, nondistended. MUSCULOSKELETAL: No cyanosis, or edema. BACK: Nontender without obvious deformity. No CVA tenderness. A/P Assessment and Plan Dysnoea Hypoxia, no PE Bilat infilt, Alveolitis or Hypersensivity pn Morbid obesity TUAN vs Obesity hypoventilation synd PLAN: PO Steroids Consider Gastric Bypass Will need sleep study as out pt Supplement 02 DC plans for home with Will FU in office Joe Abdul MD Dec 16, 2016 19:22
[2016-12-16] MEDS ORDERED: NIFEdipine 30 MG SUSTAINED RELEASE TAB PO SCH (21:00)
== END 2016-12-16 19:37 | disposition home or self-care (01) | DRG 197 ==
LOC: NEPE 07:26 → NEDA 11:01 → N04A 16:10
PROVIDERS: ADMIT Hospitalist; ATTEND Hospitalist
PROC: 3E0F7GC Introduction of Other Therapeutic Substance into Respiratory Tract, Via Natural or Artificial Opening (ICD-10-PCS; principal; 2016-12-14)
PROC: 5A09357 Assistance with Respiratory Ventilation, Less than 24 Consecutive Hours, Continuous Positive Airway Pressure (ICD-10-PCS; 2016-12-14)
DX: J67.9 Hypersensitivity pneumonitis due to unspecified organic dust (principal); J45.901 Unspecified asthma with (acute) exacerbation; I11.0 Hypertensive heart disease with heart failure; I50.9 Heart failure, unspecified; E66.2 Morbid (severe) obesity with alveolar hypoventilation; Z68.43 Body mass index [BMI] 50.0-59.9, adult; R09.02 Hypoxemia; R74.8 Abnormal levels of other serum enzymes; G47.33 Obstructive sleep apnea (adult) (pediatric); E78.5 Hyperlipidemia, unspecified; F31.9 Bipolar disorder, unspecified
CPT/HCPCS: 36600; 71010; 71275; 80048; 80053; 80061; 82550; 82552; 82805; 83735; 83880; 84484; 85025; 85610; 85652; 85730; 86038; 86430; 93005; 93306; 94002; 94620; 94640; 96374; 96375; J1650; J2405; J2930; J7512; Q9967